=== PATIENT | female | born 1950 | race Caucasian/White ===

== ENCOUNTER 2020-12-20 01:31 | Emergency (ER) | payer MEDICARE, SELFPAY ==
[2020-12-20] VITALS (9 sets, daily range): BP systolic 112–161; BP diastolic 69–96; PULSE 74–97; RESP 14–95; TEMP 36.8; O2SAT 95–100
--- NOTE | ~2020-12-20 | CT_ITS ---
EXAMINATION: CT brain wo con DATE: 12/20/2020 04:38 INDICATION: Fall. Head injury. Dizziness. Nasal injury. TECHNIQUE: Computed tomography (CT) of the head was performed without intravenous contrast. The mA wa s adjusted according to patient size. Iterative reconstruction technique was employed. Exam dose: 68 1.00 mGy-cm total exam DLP. COMPARISON: None FINDINGS: Bilateral deep brain stimulator devices are again noted. Although 11 mm hypodensity in the right basal ganglia may be an enlarged Virchow-Lee space versus c hronic lacunar infarct. No intracranial mass lesion or hemorrhage, midline shift or mass effect effect. No subdural or epidur al hematoma. Status post left mastoidectomy. The left auditory ossicles are absent. Right mastoid air cells are un remarkable. Included paranasal sinuses are unremarkable. No skull fracture or bone destruction is evident. IMPRESSION: No acute intracranial finding or skull fracture Reviewed, dictated and finalized at [facility]. Reviewed, dictated and finalized at location [facility].
--- NOTE | ~2020-12-20 | CT_ITS ---
EXAMINATION: CT facial bones wo con DATE: 12/20/2020 04:38 INDICATION: Fall. Injury to nose. Dizziness. TECHNIQUE: Computed tomography (CT) of the facial bones and maxillofacial region was performed withou t intravenous contrast. Automated exposure control and iterative reconstruction technique were employ ed. Exam dose: 345.88 mGy-cm total exam DLP. COMPARISON: None. FINDINGS: No nasal bone fracture is identified. The frontozygomatic sutures and zygomatic arches and the remainder the facial bones are intact, without evidence of fracture. No mandibular fracture or di slocation is noted. IMPRESSION: No facial fracture Reviewed, dictated and finalized at [facility]. Reviewed, dictated and finalized at [facility]. IMPRESSION: No facial fracture
--- NOTE | ~2020-12-20 | XR_ITS ---
XR hand RT min 3V DATE: 12/20/2020 04:41 INDICATION: Fall. Posterior right hand pain, third and fourth metacarpophalangeal area pain TECHNIQUE: 3 views COMPARISON: 03/30/2016 right hand FINDINGS: Old third metacarpal shaft healed fracture deformity. Diffuse osteopenia. There is osteoarthritic change at the first carpometacarpal joint and multiple interphalangeal joints . No fracture or dislocation, periosteal reaction or bone destruction is evident. IMPRESSION: Polyarticular osteoarthritis Osteopenia Reviewed, dictated and finalized at location [facility].
--- NOTE | 2020-12-20 02:13 | ECG_ITS ---
Measurements Intervals [place] Rate: 76 P: MO: 0 QRS: 19 QRSD: 104 T: 3 QT: 375 QTc: 424 Interpretive Statements SINUS RHYTHM INCOMPLETE RIGHT BUNDLE BRANCH BLOCK BORDERLINE R WAVE PROGRESSION, ANTERIOR LEADS BORDERLINE ST-T WAVE ABNORMALITY- ANT/INF LEADS BASELINE ARTIFACT- I, II, III, AVR, AVL, AVF, V1-V3 BORDERLINE ECG Electronically Signed On 12-20-2020 5:53:55 CDT by Alonso Bonilla D.O.
[2020-12-20 02:49] LABS: Basophils Absolute Auto 0.1 K/mm3 (0.0-0.1); Basophils Percent Auto 0.8 % (0.2-1.2); Eosinophils Absolute Auto 0.2 K/mm3 (0-0.3); Eosinophils Percent Auto 3.8 % (0-4.4); Hematocrit 40.8 % (37.0-47.0); Immature Granulocyte Absolute 0.01 K/mm3 (0.00-0.031); Immature Granulocyte Percent A 0.2 % (0-0.5); Lymphocytes Absolute Auto 1.81 K/mm3 (0.9-3.2); Lymphocytes Percent Auto 29.7 % (18.3-44.2); Mean Corpuscular HGB Conc 31.9 g/dl (32-36); Mean Corpuscular Hemoglobin 29.8 pg (26-34); Mean Corpuscular Volume 93.6 fl (80-100); Mean Platelet Volume 9.4 fl (7.4-10.4); Monocytes Absolute Auto 0.7 K/mm3 (0.1-0.6); Monocytes Percent Auto 11.8 % (2.6-8.5); Neutrophils Absolute Auto 3.3 K/mm3 (1.3-6.7); Neutrophils Percent Auto 53.7 % (45.5-73.1); Platelet Count Result 161 k/mm3 (150-375); Red Blood Count 4.36 M/mm3 (4.2-5.4); Red Cell Distribution Width 13.3 % (11.5-14.5); White Blood Count 6.1 K/mm3 (4.5-10.0)
[2020-12-20 03:00] LABS: Alanine Aminotransferase 7 U/L (4-35); Albumin Level 4.1 g/dL (3.5-5.1); Alkaline Phosphatase 109 U/L (38-126); Anion Gap 6 mmol/L (8-16); Aspartate Amino Transferase 21 U/L (14-36); Bilirubin,Total 0.3 mg/dL (0.2-1.3); Blood Urea Nitrogen 29 mg/dL (7-17); Calcium 9.5 mg/dL (8.4-10.2); Carbon Dioxide 28 mmol/L (22-30); Chloride 103 mmol/L (98-107); Estimated CRCL calculation 48 ml/min; Estimated Glomerular Filt Rate > 60; Glucose 99 mg/dL (65-110); Magnesium 1.9 mg/dL (1.6-2.3); Partial Thromboplastin Time 29.6 SECONDS (22.3-36.8); Potassium 3.4 mmol/L (3.4-5.0); Sodium 137 mmol/L (137-145)
--- NOTE | 2020-12-20 03:00 | PC.NURSE ---
Pt. unable to void
--- NOTE | 2020-12-20 03:15 | PC.NURSE ---
pt. unable to void at this time.
--- NOTE | 2020-12-20 03:40 | PC.NURSE ---
pt. attempted for urine sample. unable to void.
--- NOTE | 2020-12-20 04:09 | ED.FALL ---
HPI - Fall General Chief Complaint: Dizziness Stated Complaint: ground level fall Time Seen by Provider: 12/20/20 01:50 Source: patient and RN notes reviewed Mode of arrival: EMS Limitations: no limitations History of Present Illness HPI Narrative: This is a 70 year old female with Parkinson's disease who presents from assisted living facility for evaluation after a fall. Patient states she walking to get something to drink when she lost her balance. She was walking with a walker , and she fell forward away from her walker . She hit her nose and chin, and she reports epistaxis. She denies LOC. She is complaining of headache currently. She denies dizziness, nausea, vomiting, rib pain or leg pain. She reports mild right hand pain. She is unsure if she takes blood thinner. Related Data Allergies Allergy/AdvReac Type Severity Reaction Status Date / Time baclofen Allergy Severe Anaphylactic Verified 12/20/20 02:07 Shock egg Allergy Mild Anaphylactic Verified 12/20/20 02:07 Shock Penicillins Allergy Unknown Rash Verified 12/20/20 02:07 propofol Allergy Unknown Anaphylactic Verified 12/20/20 02:07 Shock Review of Systems Review of Systems: All systems reviewed & are unremarkable except as noted in HPI and below PMFSH Past Medical History Medical History (Updated 12/20/20 @ 06:55 by Peyton Arguello MD) Hyperlipidemia Hypertension Parkinson disease Surgical History Surgical History (Updated 12/20/20 @ 04:14 by Peyton Arguello MD) History of cholecystectomy Social History Social History (Updated 12/20/20 @ 04:14 by Peyton Arguello MD) Smoking status: Never smoker Alcohol intake: never Substance use: never Exam Const: General: no acute distress and alert Orientation/consciousness: patient oriented x3 HENMT: Other: bruising to nose tip, no active epistaxis upper jaw endentulous bruising to chin Eyes: Pupils: Equal, round and reactive pupils present EOM: EOMs intact bilaterally Neck: Neck: normal visual inspection Other: no c spine tenderness Chest: Chest palpation & inspection: normal inspection of the chest Resp: Effort & Inspection: normal respiratory effort and no retractions Auscultation: clear to auscultation bilaterally Cardio: Rate: regular rate Rhythm: regular rhythm Heart sounds: no murmurs GI: GI Palp: Yes Soft to palpation, Yes Tenderness to palpation present (GI) and Yes Guarding due to palpation present (GI) Auscultation: bowels sounds not normal Neuro: General: patient oriented x3, moves all extremities and CN's II-XI intact bilaterally Psych: Mental Status: mental status grossly normal Affect: normal affect Course Reevaluation(s) Reevaluation #1: PAtient's labs are unremarkable other than possible dehydation with elevated BUN. She was given IVF hydration. No sign orthostasis. She is not having dizziness. imaging unremarkable. Date: 12/20/20 Time: 06:53 Vital Signs Vital signs: Vital Signs Temperature 98.2 F 12/20/20 01:37 Pulse Rate 74 12/20/20 01:37 Respiratory Rate 20 12/20/20 01:37 Pulse Oximetry 97 12/20/20 01:37 Temperature 98.2 F 12/20/20 01:37 Pulse Rate 97 12/20/20 06:53 Respiratory Rate 19 12/20/20 06:53 Blood Pressure 112/69 12/20/20 06:53 Pulse Oximetry 100 12/20/20 06:53 MDM - Fall Medical Records Attestation: I reviewed the patient's medical records. Lab Data Attestation: I reviewed the patient's lab results. Result diagrams: 12/20/20 02:34 12/20/20 02:34 Labs: Lab Results 12/20/20 12/20/20 12/20/20 Range/Units 02:34 02:34 02:34 WBC 6.1 (4.5-10.0) K/mm3 RBC 4.36 (4.2-5.4) M/mm3 Hgb 13.0 (12.0-15.0) g/dL Hct 40.8 (37.0-47.0) % MCV 93.6 (80-100) fl MCH 29.8 (26-34) pg MCHC 31.9 L (32-36) g/dl RDW 13.3 (11.5-14.5) % Plt Count 161 (150-375) k/mm3 MPV 9.4 (7.4-10.4) fl Immature Gran % (Auto) 0.2
[2020-12-20] MEDS: SODIUM CHLORIDE 0.9% IV 1,000 ML 999 ML IV CONT (04:15)
[2020-12-20 04:33] LABS: Add Urine Microscopic? YES; Appearance Urine Clear (Clear); Bilirubin Urine Negative (Negative); Blood Urine Negative (Negative); Color Urine Yellow (Yellow); Glucose Urine UA Negative (Negative); Ketones Urine Trace mg/dL (Negative); Leukocyte Esterase Ur Negative LEU/UL (Negative); Mucus Urine Rare /lpf; Nitrate Urine Negative (Negative); Protein Urine Negative (Negative); Squamous Epithelial Cell Urine Rare /hpf (Few); Urobilinogen Urine Negative mg/dL (<2.0); WBC Urine 0-3 /hpf
[2020-12-20 04:38] LABS: Specific Grav Ur 1.031 (1.001-1.035)
--- NOTE | 2020-12-20 07:08 | PC.NURSE ---
Called pt. daughter Rosa states she is in the [facility] and cannot get pt. RN contacted pt. daughter [phone] Christy. States she is working in an ED in [place], [place] and will call a grandchild to come and get the pt.
--- NOTE | 2020-12-20 07:30 | PC.NURSE ---
attempted to call [facility] [employer] twice. left voicemail x 1.
--- NOTE | 2020-12-20 09:14 | PC.NURSE ---
davey from [facility] calls for phone report
== END 2020-12-20 07:50 ==
PROVIDERS: Emergency Provider General Practice; PCP Internal Medicine
DX: S00.33XA Contusion of nose, initial encounter (principal); S00.83XA Contusion of other part of head, initial encounter; E86.0 Dehydration; E78.5 Hyperlipidemia, unspecified; I10 Essential (primary) hypertension; G20 Parkinson's disease; W18.39XA Other fall on same level, initial encounter; I45.10 Unspecified right bundle-branch block; R94.31 Abnormal electrocardiogram [ECG] [EKG]
CPT/HCPCS: 36415; 51701; 70450; 70486; 73130; 80053; 81001; 83735; 85025; 85610; 85730; 93005; 96360; 99284; J7030

== ENCOUNTER 2022-02-06 08:09 | Emergency (ER) | payer MEDICARE, SELFPAY ==
--- NOTE | ~2022-02-06 | CT_ITS ---
EXAMINATION: CT abdomen pelvis w con DATE: 02/06/2022 09:33 INDICATION: Bilateral flank pain TECHNIQUE: Computed tomography (CT) of the abdomen and pelvis was performed with 100 cc Omnipaque 350 intravenous contrast. The dose-length product was 1287.59 mGy-cm. Automated exposure control and ite rative reconstruction technique were employed. COMPARISON: CT dated 02/21/2018 FINDINGS: Lung bases are unremarkable. Heart size normal. There is mild dilation of the renal pelvis bilaterally, although the ureters appear normal in course and caliber. There is a subcentimeter hypod ensity exophytic from the right kidney laterally, too small to characterize. A similar appearing hypo dense lesion of the left kidney, also too small to characterize. Status post cholecystectomy with expected prominence of the bile ducts. The liver, spleen, pancreas, adrenal glands are unremarkable. Colonic diverticulosis without evidence for diverticulitis. Nonobstr uctive bowel pattern. Normal appendix. No free air or free fluid. Uterus is retroverted with possible fibroid changes. Small fat-containing left inguinal hernia. There is a chronic fracture deformity of the right iliac crest. There is grade 1 spondylolisthesis at L5-S1 secondary to spondylolysis. Moder ate lumbar spondylosis. IMPRESSION: 1. Mildly dilated renal pelvis bilaterally without dilation of the ureters. Cannot exclude UPJ obstru ction. 2: Retroverted uterus with possible fibroid changes. Reviewed, dictated and finalized at location [facility]. IMPRESSION: 1. Mildly dilated renal pelvis bilaterally without dilation of the ureters. Can not exclude UPJ obstruction. 2: Retroverted uterus with possible fibroid changes.
[2022-02-06 08:09] VITALS: BP 156/79; PULSE 96; RESP 15; TEMP 36.4; O2SAT 95
[2022-02-06 08:35] LABS: Basophils Absolute Auto 0.1 K/mm3 (0.0-0.1); Eosinophils Absolute Auto 0.3 K/mm3 (0-0.3); Eosinophils Percent Auto 4.8 % (0-4.4); Hematocrit 41.1 % (37.0-47.0); Hemoglobin 13.4 g/dL (12.0-15.0); Immature Granulocyte Absolute 0.03 K/mm3 (0.00-0.031); Immature Granulocyte Percent A 0.6 % (0-0.5); Lymphocytes Absolute Auto 1.69 K/mm3 (0.9-3.2); Lymphocytes Percent Auto 32.3 % (18.3-44.2); Mean Corpuscular HGB Conc 32.6 g/dl (32-36); Mean Corpuscular Hemoglobin 30.3 pg (26-34); Mean Platelet Volume 9.2 fl (7.4-10.4); Monocytes Absolute Auto 0.5 K/mm3 (0.1-0.6); Monocytes Percent Auto 10.1 % (2.6-8.5); Neutrophils Absolute Auto 2.7 K/mm3 (1.3-6.7); Neutrophils Percent Auto 51.2 % (45.5-73.1); Platelet Count Result 169 k/mm3 (150-375); Red Blood Count 4.42 M/mm3 (4.2-5.4); Red Cell Distribution Width 13.8 % (11.5-14.5); White Blood Count 5.2 K/mm3 (4.5-10.0)
[2022-02-06 08:49] LABS: Bacteria Urine 3+ /hpf; Mucus Urine Few /lpf; Squamous Epithelial Cell Urine Few /hpf (Few); WBC Urine 0-3 /hpf
[2022-02-06 08:52] LABS: Add Urine Microscopic? YES; Appearance Urine Cloudy (Clear); Bilirubin Urine Negative (Negative); Blood Urine Trace-intact (Negative); Color Urine Yellow (Yellow); Glucose Urine UA Negative (Negative); Ketones Urine Trace mg/dL (Negative); Leukocyte Esterase Ur Negative LEU/UL (Negative); Nitrate Urine Positive (Negative); Protein Urine Negative (Negative); Specific Grav Ur 1.025 (1.001-1.035); Urobilinogen Urine 0.2 mg/dL (<2.0)
[2022-02-06 09:05] LABS: Alanine Aminotransferase 8 U/L (6-35); Alkaline Phosphatase 102 U/L (38-126); Anion Gap 8 mmol/L (8-16); Aspartate Amino Transferase 25 U/L (14-36); Bilirubin,Total 0.5 mg/dL (0.2-1.3); Blood Urea Nitrogen 21 mg/dL (7-17); Carbon Dioxide 26 mmol/L (22-30); Chloride 104 mmol/L (98-107); Estimated CRCL calculation 71 ml/min; Estimated Glomerular Filt Rate > 60; Glucose 92 mg/dL (65-110); Potassium 3.9 mmol/L (3.4-5.0); Sodium 138 mmol/L (137-145)
[2022-02-06 09:40] VITALS: BP 126/61; PULSE 85; RESP 15; O2SAT 97
[2022-02-06 10:42] VITALS: BP 129/89; PULSE 73; RESP 15; O2SAT 98
--- NOTE | 2022-02-06 10:46 | PC.NURSE ---
Called Rosa Elizondo (daughter) per pt request and gave update on pt status. CELL [phone] for updates
--- NOTE | 2022-02-06 10:47 | ED.BACK ---
HPI - Back Pain/Injury General Chief Complaint: Back Pain/Injury Stated Complaint: back pain Source: RN notes reviewed History of Present Illness HPI Narrative: [facility] for [facility] pain. Patient states she is had bilateral flanks and lower back for the past 2 days she states she is had no trauma or injury the pain does not radiate states she does have a history of Parkinson disease as well as frequent urinary tract infections. She states she has not take anything for the pain today she denies any fevers or chills chest pain shortness of breath abdominal pain nausea vomiting or any other symptoms Related Data Allergies Allergy/AdvReac Type Severity Reaction Status Date / Time baclofen Allergy Severe Anaphylactic Verified 02/06/22 08:16 Shock egg Allergy Mild Anaphylactic Verified 02/06/22 08:16 Shock Penicillins Allergy Unknown Rash Verified 02/06/22 08:16 propofol Allergy Unknown Anaphylactic Verified 02/06/22 08:16 Shock Review of Systems Review of Systems: Gen.: Denies fevers or chills ENT: Denies congestion Respiratory: Denies shortness of breath or cough CV: Denies chest pain or palpitations GI: Denies abdominal pain nausea, emesis or diarrhea reports flank pain reports frequent UTI Musculoskeletal: Denies back pain or muscle pain Neuro: Reports Parkinson's disease Skin: Denies rash Except as documented, all other systems reviewed and negative PMFSH Past Medical History Medical History Hyperlipidemia Hypertension Parkinson disease Surgical History Surgical History (Updated 12/20/20 @ 04:14 by Peyton Arguello MD) History of cholecystectomy Social History Social History Smoking status: Never smoker Alcohol intake: never Substance use: never Exam Narrative: APPEARANCE: No acute distress, nontoxic, resting in bed EYES: EOMI HEENT: Normocephalic, atraumatic, OMM RESPIRATORY: No respiratory distress Clear to auscultation bilaterally with no rhonchi wheezing or rales. CARDIOVASCULAR: Regular rate and rhythm without murmurs rubs or gallops. ABDOMINAL: Soft, nondistended mild tenderness in right lower quadrant left lower quadrant no tenderness right upper quadrant left upper quadrant no rebound or guarding mild flank tenderness bilaterally Back: No midline thoracic lumbar tenderness palpation MUSCULOSKELETAl: Moves all extremities. No clubbing, cyanosis or edema. NEURO: Awake and alert x 4. Following commands, mild slurred speech, no focal deficits SKIN:: Warm, dry. No rashes lesions or abrasions PSYCHIATRIC: Normal affect/mood, Course Course Emergency Course: Patient states he is feeling much better at this time states pain has resolved Discussed with GROCERY CLERK Мария for Dr. Chandra we discussed the patient's CT scan she discussed Dr. Chandra and this time feel patient will be treated for UTI with follow-up as an outpatient in the office Discussed with patient results of workup and diagnosis. Discussed need for follow-up with primary care, proper use of medication, and reasons to return to the emergency department. Patient understands and agrees to current treatment plan cussed with patient concern of possible UPJ obstruction need for follow-up in agreement Vital Signs Vital signs: Vital Signs Temperature 97.5 F L 02/06/22 08:09 Pulse Rate 96 02/06/22 08:09 Respiratory Rate 15 02/06/22 08:09 Blood Pressure 156/79 H 02/06/22 08:09 Pulse Oximetry 95 02/06/22 08:09 Oxygen Delivery Room Air 02/06/22 08:09 Temperature 97.5 F L 02/06/22 08:09 Pulse Rate 73 02/06/22 10:42 Respiratory Rate 15 02/06/22 10:42 Blood Pressure 129/89 02/06/22 10:42 Pulse Oximetry 98 02/06/22 10:42 Oxygen Delivery Room Air 02/06/22 08:09 MDM - Back Pain/Injury Lab Data Result diagrams: 02/06/22 08:27
--- NOTE | 2022-02-06 10:51 | PC.NURSE ---
Spoke to Mesha MORRELL at [facility] and gave nurse to nurse verbal report on pt status and test results/treatments.
== END 2022-02-06 12:26 ==
PROVIDERS: Emergency Provider Emergency Medicine; PCP Internal Medicine
DX: N39.0 Urinary tract infection, site not specified (principal); E78.5 Hyperlipidemia, unspecified; I10 Essential (primary) hypertension; G20 Parkinson's disease
CPT/HCPCS: 36415; 51701; 74177; 80053; 81001; 85025; 96365; 96367; 99284; J0131; J1956; Q9967

== ENCOUNTER 2022-02-21 13:41 | Outpatient (CLI) | payer MEDICARE, SELFPAY ==
--- NOTE | ~2022-02-21 | NM_ITS ---
EXAMINATION: YEIMY sepulveda renal scan DATE: 02/21/2022 15:07 INDICATION: Dilated renal pelvises TECHNIQUE: 7.6 mCi Tc-99m MAG3 was administered IV. 40 mg furosemide was administered IV immediately afterward. The patient was scanned in the supine position. A posterior abdominal radionuclide angiog saida was obtained. A subsequent time course of static images of the kidneys, ureters, and bladder was obtained. COMPARISON: None FINDINGS: The posterior abdominal radionuclide angiogram and sequential static images show normal size, positio n, and morphology of the kidneys. Peak renal parenchymal uptake was 3.4 min in left kidney and 3.4 mi n in right kidney (normal peak 3-5 minutes). The relative early renal uptake was 47% on the left and 53% on the right (<40% is abnormal). No abnormalities of the ureters or bladder are seen. T1/2 for clearance of activity from the left kidney and proximal collecting system was 9 minutes. T1/2 for clearance of activity from the right kidney and proximal collecting system was 11 minutes. Notes on interpretation: T1/2 <10 minutes is normal, 10-15 minutes is low grade obstruction of questi onable clinical significance, 15-20 minutes is partial obstruction that is likely clinically signific ant, >20 minutes is high grade obstruction. Note that false positives may be seen with supine positio noah, dehydration, severely dilated nonobstructed kidney, atonic collecting system, poor renal functi on, and chronic furosemide use. IMPRESSION: 1. Symmetric kidney function. 2. Minimal delayed activity clearance from the right kidney consistent with low-grade obstruction of questionable clinical significance. No delay in activity clearance from the left kidney to suggest f ixed obstruction. Reviewed, dictated and finalized at location B. IMPRESSION: 1. Symmetric kidney function. 2. Minimal delayed activity clearance from the right kidney consistent with lo w-grade obstruction of questionable clinical significance. No delay in activity clearance from the left kidney to suggest fixed obstruction.
== END 2022-02-21 13:42 | disposition home or self-care (01) ==
PROVIDERS: PCP Internal Medicine; Visit Provider Nurse Practitioner Family
DX: N28.89 Other specified disorders of kidney and ureter (principal)
CPT/HCPCS: 78708; A9562; J1940

== ENCOUNTER 2023-06-19 17:13 | Emergency (ER) | payer MEDICARE, SELFPAY ==
--- NOTE | ~2023-06-19 | CT_ITS ---
EXAMINATION: CT cervical spine wo con DATE: 06/19/2023 20:10 INDICATION: Head injury. TECHNIQUE: Computed tomography (CT) of the cervical spine was performed without intravenous contrast. Automated exposure control and iterative reconstruction technique were employed. The dose-length pro duct was 472.03 mGy-cm. COMPARISON: None FINDINGS: There is 16 degrees dextroscoliosis of cervicothoracic spine. There is hypolordosis of cerv ical spine. There is mild chronic anterior wedging of T3 and T5 vertebral bodies. There is mildly dec reased disc height at C3-C4 and C4-C5 and severely decreased disc height at C5-C6 and C6-C7. The foll owing disc levels are specifically discussed: C2-C3: There is mild bilateral uncovertebral joint osteoarthritis. There is moderate right and severe left facet joint osteoarthritis. There is mild left neural foraminal stenosis. There is no central c anal stenosis. C3-C4: There is severe bilateral uncovertebral joint osteoarthritis. There is severe bilateral facet joint osteoarthritis. There is mild bilateral neural foraminal stenosis. There is mild central canal stenosis. C4-C5: There is mild right and severe left uncovertebral joint osteoarthritis. There is severe bilate ral facet joint osteoarthritis. There is mild bilateral neural foraminal stenosis. There is mild cent ral canal stenosis. C5-C6: There is severe bilateral uncovertebral joint osteoarthritis. There is moderate right and livia re left facet joint osteoarthritis. There is mild bilateral neural foraminal stenosis. There is mild central canal stenosis. C6-C7: There is severe bilateral uncovertebral joint osteoarthritis. There is mild right and severe l eft facet joint osteoarthritis. There is mild right and moderate left neural foraminal stenosis. Ther e is mild central canal stenosis. C7-T1: There is no uncovertebral joint osteoarthritis. There is severe bilateral facet joint osteoart hritis. There is mild bilateral neural foraminal stenosis. There is no central canal stenosis. IMPRESSION: 1. No fracture. 2. Severe cervical spondylosis. 3. Cervicothoracic dextroscoliosis. Reviewed, dictated and finalized at location E. ER THIRD
--- NOTE | ~2023-06-19 | XR_ITS ---
EXAMINATION: XR chest 1V DATE: 06/19/2023 20:47 INDICATION: Fall. TECHNIQUE: A single frontal view of the chest was obtained. COMPARISON: Chest 2 views 02/17/2017, CT abdomen and pelvis 03/08/2022 FINDINGS: The patient is rotated to her left. There is no pneumonia, pleural effusion, or pneumothora x. The heart size is normal. There are old healed left rib fractures. Electronic devices overlie the chest bilaterally. IMPRESSION: 1. No acute cardiopulmonary disease. Reviewed, dictated and finalized at location E. OARRAY SPECIALIST
--- NOTE | ~2023-06-19 | XR_ITS ---
EXAMINATION: XR shoulder RT min 2V DATE: 06/19/2023 20:47 INDICATION: Right shoulder pain. Fall. TECHNIQUE: 3 views of right shoulder were obtained. COMPARISON: None. FINDINGS: Bone alignment is normal. No fracture. There is severe acromioclavicular joint osteoarthrit is. The glenohumeral joint is not well profiled. There is at least mild glenohumeral joint osteoarthr itis. IMPRESSION: 1. Polyarticular osteoarthritis. Reviewed, dictated and finalized at location E. NICAL APPLICATIONS SCIENTIST
--- NOTE | ~2023-06-19 | XR_ITS ---
EXAMINATION: XR knee LT 3V DATE: 06/19/2023 20:47 INDICATION: Left knee pain. Fall. TECHNIQUE: 3 views of left knee were obtained. COMPARISON: Left knee radiographs 07/20/2009 FINDINGS: Bone alignment is normal. No fracture. There is severe osteoarthritis of patellofemoral com partment and mild osteoarthritis of medial and lateral compartments. No knee joint effusion. IMPRESSION: 1. Severe left knee osteoarthritis. Reviewed, dictated and finalized at location E. ECTOR SUBASSEMBLIES
--- NOTE | ~2023-06-19 | CT_ITS ---
EXAMINATION: CT brain wo con DATE: 06/19/2023 20:10 INDICATION: Head injury. TECHNIQUE: Computed tomography (CT) of the head was performed without intravenous contrast. The mA wa s adjusted according to patient size. Iterative reconstruction technique was employed. The dose-lengt h product was 605.33 mGy-cm. COMPARISON: Head CT 12/20/2020 FINDINGS: There are bilateral deep brain stimulators. There is a prominent perivascular space in the right basal ganglia. There are scattered areas of low attenuation in the cerebral white matter. There is no intracranial hemorrhage, acute infarction, or abnormal intracranial mass lesion. The ventricle s are normal in size. There is mild mucosal thickening in the paranasal sinuses. The orbits are catalina l. There is a left mastoidectomy. There is left frontal lateral scalp soft tissue swelling. IMPRESSION: 1. Mild nonspecific cerebral white matter disease, which likely represents chronic small vessel ische adela disease, worsened from 12/20/2020. Reviewed, dictated and finalized at location E. NT REP IMPRESSION: 1. 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
[2023-06-19 17:30] VITALS: BP 136/76; PULSE 87; RESP 16; TEMP 36.7; O2SAT 96
--- NOTE | 2023-06-19 19:27 | ED.GENADULT ---
HPI - General Adult General Chief complaint: Fall Stated complaint: FALL FROM ASSISTED LIVING ,HIT HEAD Time Seen by Provider: 06/19/23 19:05 History of Present Illness HPI narrative: Is a 2-year-old female who presents emergency department with chief complaint of fall. Patient reports he has prior history of stroke with left-sided deficits patient reports that she tripped over her feet while walking in her independent living facility patient reports that she does fall quite frequently and/or movable and talking rollover she falls but today was not able to follow her normal way patient reports she struck her forehead reports she has pain in her right shoulder and abrasion on her left knee. Patient also states that she is concerned that she may have a UTI and would like a urinalysis checked. Related Data Allergies Allergy/AdvReac Type Severity Reaction Status Date / Time baclofen Allergy Severe Anaphylactic Verified 02/06/22 08:16 Shock egg Allergy Mild Anaphylactic Verified 02/06/22 08:16 Shock Penicillins Allergy Unknown Rash Verified 02/06/22 08:16 propofol Allergy Unknown Anaphylactic Verified 02/06/22 08:16 Shock Review of Systems Review of Systems: A 10 system review of systems was completed on the patient and is negative except for what is stated in the HPI. Nursing and ancillary documentation was reviewed. [facility] Past Medical History Medical History Hyperlipidemia Hypertension Parkinson disease Surgical History Surgical History History of cholecystectomy Social History Social History Smoking status: Never smoker Alcohol intake: never Substance use: never Exam Narrative: GENERAL: Well-appearing, well-nourished, and in no acute distress. HEAD: Normocephalic, small contusion to the left forehead. EYES: PERRLA and EOMI. ENT: Nares clear, no rhinorrhea or epistaxis. Mucous membranes moist. NECK: Supple. CHEST: Clear to auscultation. No respiratory distress. HEART: Regular rate and rhythm. No murmur heard. Normal peripheral pulses. ABDOMEN: Soft, nontender, nondistended, normal active bowel sounds. EXTREMITIES: Normal range of motion. No edema. Tenderness to palpation of the right shoulder, abrasion and tenderness left knee SKIN: Warm, dry, no rash. NEURO: No new focal deficits chronic left-sided weakness. Alert and oriented x3. PSYCH: Normal mood and affect. Course Vital Signs Vital signs: Vital Signs Temperature 36.7 C 06/19/23 17:30 Pulse Rate 87 06/19/23 17:30 Respiratory Rate 16 06/19/23 17:30 Blood Pressure 136/76 06/19/23 17:30 Pulse Oximetry 96 06/19/23 17:30 Oxygen Delivery Room Air 06/19/23 17:30 Temperature 36.7 C 06/19/23 17:30 Pulse Rate 87 06/19/23 17:30 Respiratory Rate 16 06/19/23 17:30 Blood Pressure 136/76 06/19/23 17:30 Pulse Oximetry 96 06/19/23 17:30 Oxygen Delivery Room Air 06/19/23 17:30 Medical Decision Making MDM Narrative Medical decision making narrative: Differential diagnosis includes intracranial hemorrhage, head injury, cervical spine fracture, fracture, UTI, electrolyte abnormality CT head CT C-spine showed no acute abnormality Plain film x-rays of the chest right shoulder and left knee showed no evidence of fracture no evidence of pneumonia Laboratory studies were obtained which were within normal limits Urinalysis showed no evidence UTI Patient will be discharged back to her facility where she is resident of Vital Signs Vital Signs: Vital Signs Temperature 36.7 C 06/19/23 17:30 Pulse Rate 87 06/19/23 17:30 Respiratory Rate 16 06/19/23 17:30 Blood Pressure 136/76 06/19/23 17:30 Pulse Oximetry 96 06/19/23 17:30 Oxygen Delivery Room Air 06/19/23 17:30 Temperature
[2023-06-19 20:24] LABS: Basophils Absolute Auto 0.1 K/mm3 (0.0-0.1); Basophils Percent Auto 0.8 % (0.2-1.2); Eosinophils Absolute Auto 0.2 K/mm3 (0-0.3); Eosinophils Percent Auto 3.5 % (0-4.4); Hematocrit 41.4 % (37.0-47.0); Hemoglobin 13.4 g/dL (12.0-15.0); Immature Granulocyte Absolute 0.02 K/mm3 (0.00-0.031); Immature Granulocyte Percent A 0.3 % (0-0.5); Lymphocytes Absolute Auto 2.27 K/mm3 (0.9-3.2); Lymphocytes Percent Auto 34.1 % (18.3-44.2); Mean Corpuscular HGB Conc 32.4 g/dl (32-36); Mean Corpuscular Hemoglobin 30.2 pg (26-34); Mean Corpuscular Volume 93.5 fl (80-100); Mean Platelet Volume 9.4 fl (7.4-10.4); Monocytes Absolute Auto 0.5 K/mm3 (0.1-0.6); Monocytes Percent Auto 7.5 % (2.6-8.5); Neutrophils Absolute Auto 3.6 K/mm3 (1.3-6.7); Neutrophils Percent Auto 53.8 % (45.5-73.1); Platelet Count Result 177 k/mm3 (150-375); Red Blood Count 4.43 M/mm3 (4.2-5.4); Red Cell Distribution Width 13.7 % (11.5-14.5); White Blood Count 6.7 K/mm3 (4.5-10.0)
[2023-06-19 20:26] LABS: Appearance Urine Clear (Clear); Bilirubin Urine Negative (Negative); Blood Urine Negative (Negative); Color Urine Yellow (Yellow); Glucose Urine UA Negative (Negative); Ketones Urine Negative (Negative); Leukocyte Esterase Ur Negative LEU/UL (Negative); Nitrate Urine Negative (Negative); Protein Urine Negative (Negative); Specific Grav Ur 1.015 (1.001-1.035); Urobilinogen Urine 0.2 mg/dL (<2.0)
[2023-06-19 20:27] LABS: Add Urine Microscopic? NO
[2023-06-19 20:33] LABS: Alanine Aminotransferase 8 U/L (6-35); Albumin Level 4.4 g/dL (3.5-5.1); Alkaline Phosphatase 91 U/L (38-126); Anion Gap 5 mmol/L (8-16); Aspartate Amino Transferase 28 U/L (14-36); Bilirubin,Total 0.6 mg/dL (0.2-1.3); Blood Urea Nitrogen 19 mg/dL (7-17); Calcium 9.6 mg/dL (8.4-10.2); Carbon Dioxide 28 mmol/L (22-30); Chloride 105 mmol/L (98-107); Estimated CRCL calculation 59 ml/min; Estimated Glomerular Filt Rate > 60; Glucose 101 mg/dL (65-110); Potassium 3.8 mmol/L (3.4-5.0); Sodium 138 mmol/L (137-145)
[2023-06-19 21:34] VITALS: BP 132/74; PULSE 82; RESP 18; O2SAT 97
== END 2023-06-19 21:34 | disposition home or self-care (01) ==
PROVIDERS: Emergency Provider Emergency Medicine; PCP Internal Medicine
DX: S00.83XA Contusion of other part of head, initial encounter (principal); S40.011A Contusion of right shoulder, initial encounter; S90.02XA Contusion of left ankle, initial encounter; S80.212A Abrasion, left knee, initial encounter; E78.5 Hyperlipidemia, unspecified; I10 Essential (primary) hypertension; I69.954 Hemiplegia and hemiparesis following unspecified cerebrovascular disease affecting left non-dominant side; G20.A1 Parkinson's disease without dyskinesia, without mention of fluctuations; Z90.49 Acquired absence of other specified parts of digestive tract; M17.12 Unilateral primary osteoarthritis, left knee; M19.011 Primary osteoarthritis, right shoulder; M47.812 Spondylosis without myelopathy or radiculopathy, cervical region; R90.82 White matter disease, unspecified; W01.0XXA Fall on same level from slipping, tripping and stumbling without subsequent striking against object, initial encounter
CPT/HCPCS: 36415; 70450; 71045; 72125; 73030; 73562; 80053; 81003; 85025; 99284

== ENCOUNTER 2024-05-15 18:59 | Emergency (ER) | payer MEDICARE, SELFPAY ==
--- NOTE | ~2024-05-15 | CT_ITS ---
CT brain wo con Ordering provider: Chema Burns MD History: 73 years Female with . CHI . Comparison: June 19, 2023 Technique: CT of the head without contrast. Radiation reduction technique utilized.The dose-length product was 681 mGy-cm. FINDINGS: BRAIN PARENCHYMA AND CSF SPACES: Bilateral frontal stimulator with the tip in the area of the thalam i and brainstem. No midline shift, mass effect or hemorrhage. The brain parenchyma and CSF spaces ar e otherwise normal. VISUALIZED PARANASAL SINUSES: Well aerated. MASTOIDS: Well aerated. BONES: The bones appear intact. SOFT TISSUES: Visualized nasopharynx is normal. Superficial soft tissues are normal. IMPRESSION: No acute intracranial findings. Reviewed, dictated and finalized at location A. R COIL TAPER
[2024-05-15 19:00] VITALS: BP 134/72; PULSE 101; RESP 18; O2SAT 98
--- NOTE | 2024-05-15 19:47 | ED_ITS ---
HPI - Fall General Chief Complaint: Fall <Chema Burns MD - Last Filed: 05/15/24 20:40> Stated Complaint: HEAD LAC S/P GLF <Chema Burns MD - Last Filed: 05/15/24 20:40> Time Seen by Provider: 05/15/24 19:03 <Chema Burns MD - Last Filed: 05/15/24 20:40> History of Present Illness HPI Narrative: 73-year-old female with a past medical history including hypertension and Parkinson's disease/dementia. Patient presents from her correction facility for concerns of a ground level fall. Unclear how patient fell, but she does have significant tremor and movement from her Parkinson's. Not any blood thinner medications. Reportedly hit her head on the door on the way down. Did not lose consciousness. Patient is complaining of some head pain but has no injuries appreciated or any lacerations. Denies any chest pain or shortness of breath, no prodromal symptoms reported before the fall. Patient was otherwise in her normal state of health. <Chema Burns MD - Last Filed: 05/15/24 20:40> Related Data Allergies/Adverse Reactions: Allergies Allergy/AdvReac Type Severity Reaction Status Date / Time baclofen Allergy Severe Anaphylactic Verified 02/06/22 08:16 Shock egg Allergy Mild Anaphylactic Verified 02/06/22 08:16 Shock Penicillins Allergy Unknown Rash Verified 02/06/22 08:16 propofol Allergy Unknown Anaphylactic Verified 02/06/22 08:16 Shock <Chema Burns MD - Last Filed: 05/15/24 20:40> Review of Systems Review of Systems: As reviewed above in HPI <Chema Burns MD - Last Filed: 05/15/24 20:40> [facility] Past Medical History Medical History: Medical History Hypertension Hyperlipidemia Parkinson disease <Chema Burns MD - Last Filed: 05/15/24 20:40> Surgical History Surgical History: Surgical History History of cholecystectomy <Chema Burns MD - Last Filed: 05/15/24 20:40> Social History Social History: Social History Smoking status: Never smoker Alcohol intake: never Substance use: never <Chema Burns MD - Last Filed: 05/15/24 20:40> Exam Narrative: GENERAL: [Well-appearing, well-nourished, and in no acute distress.] HEAD: [Normocephalic, atraumatic.] Area of alopecia on the top of the skull without any laceration or acute injury EYES: [PERRLA and EOMI.] ENT: Nares clear, no rhinorrhea or epistaxis. Mucous membranes moist. NECK: Supple. CHEST: [Clear to auscultation. No respiratory distress.] HEART: [Regular rate and rhythm]. No murmur heard. [Normal peripheral pulses.] ABDOMEN: [Soft, nondistended], [nontender], [No rigidity or guarding] EXTREMITIES: Normal range of motion. [No edema.] SKIN: Warm, dry, no rash. NEURO: No new obvious focal deficits and she is able to move all extremities. Alert and oriented [x3.] PSYCH: [Normal mood and affect.] <Chema Burns MD - Last Filed: 05/15/24 20:40> Course Vital Signs Vital signs: Vital Signs Pulse Rate 101 H 05/15/24 19:00 Respiratory Rate 18 05/15/24 19:00 Blood Pressure 134/72 05/15/24 19:00 Pulse Oximetry 98 05/15/24 19:00 Oxygen Delivery Room Air 05/15/24 19:00 Pulse Rate 101 H 05/15/24 19:00 Respiratory Rate 18 05/15/24 19:00 Blood Pressure 134/72 05/15/24 19:00 Pulse Oximetry 98 05/15/24 19:00 Oxygen Delivery Room Air 05/15/24 19:00 <Chema Burns MD - Last Filed: 05/15/24 20:40> Vital Signs Pulse Rate 101 H 05/15/24 19:00 Respiratory Rate 18 05/15/24 19:00 Blood Pressure 134/72 05/15/24 19:00 Pulse Oximetry 98 05/15/24 19:00 Oxygen Delivery Room Air 05/15/24 19:00 Pulse Rate 101 H 05/15/24 19:00 Respiratory Rate 18 05/15/24 19:00 Blood Pressure 134/72 05/15/24 19:00 Pulse Oximetry 98 05/15/24 19:00 Oxygen Delivery Room Air 05/15/24 19:00 <Rishi Unger MD - Last Filed: 05/15/24 23:49> MDM - Fall MDM Narrative Medical decision making narrative: 73-year-old female with history of hypertension and Parkinson's who presents to the emergency department after a ground level fall. She hit her head on the door on the way down but did not lose consciousness. Not any blood thinner medications. Complaining of pain in her head. No obvious traumatic injury externally, no hematoma or laceration. She has an area of old alopecia on top of her skull but not from today's injury. She has normal reassuring vital signs without any significant blood pressure concerns, tachycardia, hypoxia. No tachypnea. Given her age and risk factors a CT head was obtained without contrast to assess for any intracranial pathology prior to safe discharge back to her facility. Given patient's significant movement disorder she did require IM Benadryl for the CT scan. Patient signed out to the oncoming provider pending CT scan and discharged back to her facility if negative. <Chema Burns MD - Last Filed: 05/15/24 20:40> 73-year-old female with history of hypertension and Parkinson's who presents to the emergency department after a ground level fall. She hit her head on the door on the way down but did not lose consciousness. Not any blood thinner medications. Complaining of pain in her head. No obvious traumatic injury externally, no hematoma or laceration. She has an area of old alopecia on top of her skull but not from today's injury. She has normal reassuring vital signs without any significant blood pressure concerns, tachycardia, hypoxia. No tachypnea. Given her age and risk factors a CT head was obtained without contrast to assess for any intracranial pathology prior to safe discharge back to her facility. Given patient's significant movement disorder she did require IM Benadryl for the CT scan. Patient signed out to the oncoming provider pending CT scan and discharged back to her facility if negative. CT head showed no acute abnormality <Rishi Unger MD - Last Filed: 05/15/24 23:49> Medical Records Attestation: I reviewed the patient's medical records. <Chema Burns MD - Last Filed: 05/15/24 20:40> Discharge Plan Discharge Clinical Impression: CHI (closed head injury), Parkinson's disease <Chema Burns MD - Last Filed: 05/15/24 20:40> Patient Disposition: Still a Patient <Chema Burns MD - Last Filed: 05/15/24 20:40> Condition: Stable <Chema Burns MD - Last Filed: 05/15/24 20:40> Patient Language: Romansh <Chema Burns MD - Last Filed: 05/15/24 20:40> Prescriptions: No Action levofloxacin 750 mg tablet 750 mg PO DAILY 7 Days Qty: 7 0RF <Chema Burns MD - Last Filed: 05/15/24 20:40> Follow-up/Referrals: Karmen,Steve Rhodes MD [Primary Care Provider] - <Chema Burns MD - Last Filed: 05/15/24 20:40> Time of Disposition: 23:49 <Chema Burns MD - Last Filed: 05/15/24 20:40> 23:49 <Rishi Unger MD - Last Filed: 05/15/24 23:49>
[2024-05-15] MEDS: diphenhydrAMINE HCl INJ 50 MG/ML VIAL IM (20:08)
[2024-05-15] MEDS: LORazepam INJ (*CRX) 2 MG/ML VIAL 1 MG IM (21:41)
[2024-05-16 00:36] VITALS: BP 139/77; PULSE 100; RESP 18; O2SAT 98
--- NOTE | 2024-05-16 03:10 | PC.NURSE ---
RN and Tech just changed pt linens and diaper. Taina care was done and cleaning of mattress.
[2024-05-16 06:49] VITALS: BP 119/77; PULSE 76; RESP 18; O2SAT 97
--- NOTE | 2024-05-16 06:57 | PC.NURSE ---
RN changed pt diaper and linens at this time. Pt was wiped clean and favian care was done. No signs of sores at this time.
--- NOTE | 2024-05-16 13:36 | PC.NURSE ---
Update on [facility] - [employer] shift foreman called regarding updated eta with many times given. Day [employer] Reviewer, has called 11:15 a.m., 12:45, and 1:40 updated eta, keep getting told they are enroute but 911 calls are taking priority due to weather.
== END 2024-05-16 14:03 ==
PROVIDERS: Emergency Provider Student in an Organized Health Care Education/Training Program; PCP Internal Medicine
DX: S09.90XA Unspecified injury of head, initial encounter (principal); G20.A1 Parkinson's disease without dyskinesia, without mention of fluctuations; F02.80 Dementia in other diseases classified elsewhere, unspecified severity, without behavioral disturbance, psychotic disturbance, mood disturbance, and anxiety; I10 Essential (primary) hypertension; E78.5 Hyperlipidemia, unspecified; Z90.49 Acquired absence of other specified parts of digestive tract; W19.XXXA Unspecified fall, initial encounter
CPT/HCPCS: 70450; 96372; 99284; J1200; J2060

== ENCOUNTER 2024-08-20 20:13 | Emergency (ER) | payer MEDICARE, MEDICAID, SELFPAY ==
--- NOTE | ~2024-08-20 | XR_ITS ---
XR chest 1V portable Ordering provider: Rishi Unger MD History: 74 years Female with . chest pain . Comparison: None. FINDINGS: MEDIASTINUM: The cardiac silhouette is moderately enlarged. LUNGS: No infiltrates, effusions or pneumothorax. Slightly prominent markings in the left lung base m edially. Devices are projected on the right and left hemithorax. OTHER: No free air under the diaphragm. IMPRESSION: No acute cardiopulmonary pathology. Reviewed, dictated and finalized at location A.
[2024-08-20 20:14] VITALS: PULSE 95; RESP 20; TEMP 37.2; O2SAT 96
[2024-08-20 20:24] VITALS: BP 114/68
--- NOTE | 2024-08-20 20:26 | ECG_ITS ---
Test Date: 2024-08-20 20:26:30 Measurements Intervals [place] Rate: 102 P: 0 KS: 0 QRS: 72 QRSD: 124 T: 34 QT: 333 QTc: 436 Interpretive Statements PROBABLY SINUS RHYTHM (SIGNIFICANT BASELINE ARTIFACT) INTRAVENTRICULAR CONDUCTION DELAY BASELINE ARTIFACT- I, II, III, AVR, AVL, AVF, V1-V6 BORDERLINE ECG No previous ECG available for comparison Electronically Signed On 08-21-2024 06:42:43 CDT by Alonso Bonilla D.O.
--- OUTSIDE RECORDS SUMMARY | 2024-08-20 20:30 | XMS_ITS | Clinical Summary ---
Author Organization [facility] Healthcare Address [address] [place] [address] Care Team Providers Care Demographer Name Role Phone Steve Peraza MD Primary Care Provider [phone] Allergies Active Allergy Reactions Criticality Noted Date Comments Adhesive Redness Low 09/05/2022 Baclofen Mental status changes,Hallucinations High Confusion Egg Swelling High Throat Swelling, Lidocaine Rash Medium 11/30/2021 Penicillin Swelling,Rash Medium Propofol Anaphylaxis High 11/14/2017 Medications acetaminophen (TYLENOL) 325 mg tabletIndicatio ns:Fever,Pain Take 2 tablets (650 mg total) by mouth every 4 (four) hours as needed for pain 30 tablet 9 Active hydroCHLOROthia zide (HYDRODIURIL) 25 mg tablet TAKE 1 TABLET (25 MG TOTAL) BY MOUTH EVERY MORNING. 90 tablet 4 Active zonisamide (ZONEGRAN) 25 mg capsule 4 Active QUEtiapine (SEROquel) 25 mg tabletIndicatio ns:Psychosis associated with Parkinson's Disease Take 1 tablet (25 mg total) by mouth nightly 1 tab qhs 30 tablet 4 09/30/19 25 Active carbidopa-levod opa (SINEMET) 25-100 mg per tablet Take 1 tablet by mouth 3 (three) times a day TAKE one tablet by mouth three times daily (10 AM - 2 PM - 6 PM). 120 tablet 4 Active ALPRAZolam (XANAX) 0.25 mg tablet Take 1 tablet (0.25 mg total) by mouth nightly as needed for anxiety 30 tablet 4 4 Active naproxen (NAPROSYN) 500 mg tablet Take 1 tablet (500 mg total) by mouth 2 (two) times a day with meals 30 tablet 4 Active bisacodyL (DULCOLAX) 10 mg suppositoryIndi cations:constip ation Insert 1 suppository (10 mg total) into the rectum 2 (two) times a day as needed for constipation 4 Active methocarbamoL (ROBAXIN) 500 mg tablet Take 1 tablet (500 mg total) by mouth 3 (three) times a day 4 Active senna (SENOKOT) 8.6 mg tablet Take 1 tablet by mouth 2 (two) times a day 4 01/15/20 25 Active polyethylene glycol (MIRALAX) 17 gram/dose bulk powderIndicatio ns:constipation Take 17 g by mouth daily 4 Active Active Problems Problem Noted Date Diagnosed Date Closed fracture of multiple ribs of right side, initial encounter 01/09/2024 Discharge planning issues 01/09/2024 Assessment & Plan (01/14/2024 12:35 PM CDT): 01/08 Came from Facility 01/09: pending OT recs. PT recs SNF 01/10-01/12: Patient is medically stable for discharge, SW/CM updated. Discharge pending facility acceptance 01/13 Patient is medically stable for discharge, SW/CM updated. Discharge pending insurance authorization Thoracic spine fracture 01/09/2024 Assessment & Plan (01/14/2024 12:38 PM CDT): #T11 superior endplate fx # L2 compression fx. -PVR--> -Non-op Management - TLSO brace (still needs) 01/12 TLSO brace ordered and delivered follow up with ortho spine prn standing scoliosis films in brace - complete Rib fracture 01/09/2024 Assessment & Plan (01/14/2024 12:40 PM CDT): #R 3,4,5 rib fractures - Encourage IS - Multimodal pain control - follow up eval [facility] clinic scheduled 01/30/24 with repeat cxr. Parkinson disease 01/09/2024 Assessment & Plan (01/12/2024 12:16 PM CDT): -Caridoba-Levodopa 25-100 TID - Akathisia and tardive dyskinesia present at baseline Anxiety 01/09/2024 Assessment & Plan (01/10/2024 11:44 AM CDT): -Holding Home Ativan Constipation 01/09/2024 Assessment & Plan (01/14/2024 12:34 PM CDT): -Last BM 6 days KETTLEMAN High stool burden on imaging - Diet: regular, passed bedside swallow - Bowel regimen: miralax, senna 01/09: no BM 01/10: Bmx1 01/13 add dulcolax Multiple closed fractures of ribs of right side 11/30/2021 Assessment & Plan (11/30/2021 7:17 AM CDT): Reviewed rib XRAYS 11/17/21 showing several right sided rib fractures. Continue supportive care and pain control. Uterine mass 11/30/2021 Assessment & Plan (11/30/2021 3:56 PM CDT): Refer for pelvic mass. Numbness 05/25/2019 Rash 10/27/2018 Assessment & Plan (10/27/2018 2:23 PM CDT): Moderate improvement in the last 24 hours. Start clobetasol ointment. Status post deep brain stimulator placement 12/2017 Assessment & Plan (09/30/2023 1:18 PM CDT): Ms. Anderson presented in the medication ON state today. She was not interested in further DBS programming at today's visit, was seen primarily for psychosis but getting DBS check. She is s/p bilateral STN DBS (08/10/2013) and revision of the right connector wire in 2013, replacement of left DBS system after lead fracture on 02/02/19. DBS was interrogated and her system and therapy impedances were wnl with exception of high impedance at contact # 0 on her left DBS. This contact was not in use and can be checked again at next visit. No changes were made to her stimulation today but can consider doing so at upcoming October visit if needed as her MDS- UPDRS was worse today. Recommendations Keep DBS on at all times Follow-up as scheduled 11/03/23 Assessment & Plan (04/16/2023 2:16 PM SOCIETY EDITOR): Ms. Anderson presented in the med on state for further programming. She is s/p bilateral STN DBS (08/10/2013) and revision of the right connector wire in 2013, replacement of left DBS system after lead fracture on 02/02/19 for further programming. She had a fall and hit her head on the table. She was provided with an ice pack from staff at the [facility]. She did not need to seek medical attention. She continued to have leaning to the left and imbalance. She was in RSB twice a week and PT twice a week. Her DBS was interrogated and her therapy and system impedances were wnl. No changes were made to her stimulation. Recommendations Keep DBS on at all times Continue PT- new order provided today to help with leaning posture 3. She is paying $110 a month for RSB. I will follow up to see if she could take classes for free 4. Fall precaution 5. Follow up in 6 months 6. Alternate the levodopa between 0.5-1 tab to improved bothersome dyskinesia. Same quetiapine and zonisamide Assessment & Plan (12/25/2022 2:15 PM CDT): Ms. Anderson presented for further programming. She is s/p bilateral STN DBS (08/10/2013) and revision of the right connector wire in 2013, replacement of left DBS system after lead fracture on 02/02/19. She had her right IPG replaced 09/13/2022. She was doing better since her last visit. She felt stronger. She was attending [facility] twice a week. Her DBS was interrogated and her therapy and system impedances were wnl. No changes were made to her stimulation. Recommendations Keep DBS on at all times No medication changes today Fall precaution Continue RSB and consider PT Follow up in May for DBS and sooner if needed Assessment & Plan (08/20/2022 2:00 PM CDT): Ms. Anderson presented for a follow up. She was not doing well since a few days after her last visit with Dr. Farley. She had a cough that continues especially at night with some chest tightness, sore throat that resolved and not able to finish her program like she normally does at [facility]. She also had more leg weak where her legs froze . She had not followed up with her PCP. Today, her legs were strong with no noted weakness and bilateral strength. She had leaning to the left and bradykinesia, rigidity. Her DBS was interrogated and her left IPG was 2.93 and the right was 2.70. No changes were made. We discussed getting the same Activa SC IPG's. She would be fine to get the right IPG replaced or both. Recommendations: 1. Keep DBS on at all times 2. Refer to Dr. Montenegro for for right IPG replacement within the next 4-6 weeks 3. Follow up with PCP and have urine tested for UTI, Covid, Flu and other respiratory illness and full evaluation of symptoms 4. Follow up in 4 months 5. Fall precaution 6. May continue the zonisamide Assessment & Plan (03/26/2022 11:22 AM SOCIETY EDITOR): Ms. Anderson presented in the med on state for further programming. She was alone. She was doing well overall. She still had imbalance, but this improved with PT earlier this year and she is currently in RSB. Today, she had a cane and was able to stand with assistance and walked with a cane. She had bradykinesia, rigidity, reduced dexterity and hypophonia. She was tearful when she talked about her dog, but she appeared to be in good spirits overall when she she laughed about the front office specialist giving a wheelchair when she did not want one. Her DBS was interrogated and no changes made to her stimulation. Recommendations: 1. Keep DBS on at all times 2. Same levodopa 3. Continue RSB abd restart ST home exercises 4. Fall precaution 5. Follow up in 6 months and sooner if needed for DBS and keep appt in Jun with Dr. Farley Assessment & Plan (09/24/2021 11:56 AM CDT): Ms. Anderson presented in the med ON state for further programming. She continued to have good benefit overall with DBS therapy. She continued ST and PT with benefit. Today on exam, she had a walker, but was able to ambulate without using it. She had a lean to the left, reduced arm swing, reduced dexterity, bradykinesia and her speech was dysarthric. Her DBS was interrogated and her left IPG was 2.96 and her right IPG was 2.86. She had two groups and she was in the lower group in B. No changes were made to her stimulation today. She had her patient developer programmer and was shown how to check the battery level and change settings if needed. She was also provided with printed instructions. Recommendations: 1. Keep DBS on at all times 2. Same levodopa 3. Continue PT/ST 4. Fall precaution 5. Follow up in 6 months and sooner if needed Assessment & Plan (04/11/2021 12:28 PM SOCIETY EDITOR): Ms. Anderson presented in the med ON state for further programming. She was present with her granddaughter and also had a visit with Dr. Farley. Today on exam, she ambulated with a cane, her gait was slow and she took short steps. She had bradykinesia, rigidity and reduced dexterity. She had dyskinesia and leaned to the left. Her speech was hypophonic. She had right hand tremor. Her DBS was interrogated and she had groups A and B and was in group A the higher stimulation- bilaterally. She was switched to her group B with a one tenth decrease- bilaterally. She was more bothered by the dyskinesia as it could be slightly painful and not as bothered by the right hand tremor. Her exam did not change after the decrease and her dyskinesia was about the same. Recommendations: 1. Keep DBS on at all times 2. Same levodopa and may adjust by 0.25-0.5 tabs needed and tolerated 3. Medications per Dr. Farley today- he decreased her propranolol LA from 120 mg to 60 mg 4. Follow up in 2 months for a zoom visit to assess mood and may start Cymbalta if needed 5. Follow up in 6 months for DBS 6. Fall and swallow precaution 7. Start PT/ST- she have orders and plan to start after the hols Assessment & Plan (02/06/2021 12:04 PM CDT): Ms. Anderson presented in the med OFF state for further programming. She was present with her friend. She continued to have good benefit overall with DBS therapy, but continued to have worsening progression in her gait and balance. Today on exam, she used a cane to ambulate. She had reduced arm swing, took short steps and when she turned direction, she had some gait freezing. She had moderate right hand resting tremor and mild tremor in her left leg. She also had bradykinesia, reduced dexterity and rigidity. Her speech was dysarthric and soft. Her DBS was interrogated and no changes were made to her stimulation today. Recommendations: 1. Keep DBS on at all times 2. Swallow precaution and strict fall precaution and use devices 3. Start PT for imbalance and ST for dysphagia and dysarthria- orders provided today 4. Keep future appt on 04/[address] Farley and for DBS and may consider a slight increase at that time if appropriate 5. Same levodopa and may adjust by 0.5 tab as needed and tolerated 6. Follow up with pcp for right hand pain and swelling from recent fall Assessment & Plan (08/02/2020 12:14 PM CDT): Overall, Ms. Anderson had being doing well and she continued to live in an assisted living facility. In the OFF state today she had right arm and bilateral leg tremor, bradykinesia, obvious kyphosis and stooped posture. She had to use her walker to walk. She wanted to make a small increase(1/10th) in her had near tremor resolution with the increase in the left DBS today. We made that change in Group A and left Group B as the setting she came to clinic with to go back to incase of side effects. For right DBS we tried a small increase and she could not tolerate it so we did not make any changes. She tolerated the programming without any persistent paraesthesia, tingling, dysarthria or change in balance. There was no immediate change in her gait, rigidity or bradykinesia with the increase today. She was interested in starting PT, OT and ST, will send for referral. Reviewed fall precautions. Overall, she remained pleased with her response to DBS therapy. Recommendations: 1. Keep DBS on at all times. For left DBS may switch to Group B with previous setting incase of any side effects. 2. Continue current dose of levodopa. May adjust by 1/2 tab as needed 3. Strict fall precautions. Continue home exercise 4. Start PT, OT and ST, rx sent Assessment & Plan (07/19/2019 12:52 PM CDT): Ms. Anderson had near tremor resolution with the increase in DBS today. There was no immediate change in her gait, rigidity or bradykinesia with the increase today. She had left eye deviation for less than 3 secmds during the impedance checks today. This happened during testing when her right DBS lead was replaced (at 3V). This resolved completely after the few seconds. Fall precautions reviewed and she was encouraged to continue her home exercise routine. Overall, she remained pleased with her response to DBS therapy. Recommendations: 1. Keep DBS on at all times. 2. Continue current dose of levodopa. 3. Strict fall precautions. Continue home exercise 4. Programming note: She had left eye deviation for less than 3 seconds during the impednace checks today. This happened turing testing when her lead was replaced (at 3V). Assessment & Plan (06/18/2019 2:21 PM SOCIETY EDITOR): Ms. Anderson had near tremor resolution for right side after 0.3V increase of stimulation but developed right hand 4th and 5th digit dystonia. This wasn't painful and resolved after decreasing stimulation by 0.1V. Her left sided tremor also was greatly reduced with the increase of simulation for the left DBS but right DBS was also increased slightly. Overall, she had less tremor, without any change in rigidity, bradykinesia or dexterity but she was off levodopa since 6p the prior day. She was instructed to take just the first dose of the day for afternoon programming appointments from now on. She had left eye deviation for less than 3 secmds during the impednace checks today. This happened turing testing when her lead was replaced (at 3V). She was interested in ST for dysphagia and hypophonia but wanted the same therapist as in the past. She will call with the contact information. Fall precautions reviewed and she was encouraged to continue her home exercise routine. Overall, she remained pleased with her response to DBS therapy. Recommendations: 1. Keep DBS on at all times. 2. Continue current levodopa but may adjust by 1/4 to 1/2 tab as needed. May take at 3 1/2 hour interval and take 5 doses per day. 3. Strict fall precautions. Continue home exercise 4. Pt to call with contact information for preferred ST 5. EMG/NCS per Dr. Loco's orders 6. Programming note: She had left eye deviation for less than 3 seconds during the impednace checks today. This happened turing testing when her lead was replaced (at 3V). Assessment & Plan (05/24/2019 12:41 PM SOCIETY EDITOR): Ms. Anderson had less right hand tremor and some improvement of dexterity after today's increase of stimulation. She was hopeful that a bilateral increase of simulation would improve her ability to arise from a sitting position but this caused marked facial dystonia. She had Hx of left hand digit 3,4,5 paresthesia x1 month, not positional, no neck or wrist pain. DBS was turned off and there was no change in the sensation. When attempting to resume the best identified setting, she gain developed facial pulling at 2.6V-the best identified setting to date. When stimulation was decreased to 2.5V the dystonia resolved and there was no worseing of dexterity or tremor. Dr. Loco examined her and recommended EMG. She was interested in ST for dysphagia and hypophonia but wanted the same therapist as in the past. She will call with the contact information. Fall precautions reviewed and she was encouraged to continue her home exercise routine. Overall, she remained pleased with her response to DBS therapy. Recommendations: 1. Keep DBS on at all times. 2. Continue current levodopa but may adjust by 1/4 to 1/2 tab as needed 3. Strict fall precautions. Continue home exercise 4. Pt to call with contact information for preferred ST 5. EMG/NCS per Dr. Loco's orders Assessment & Plan (04/05/2019 3:10 PM SOCIETY EDITOR): Ms. Anderson had improvement since her left DBS was re-activated. She still had tremor and bradykinesia with difficulty picking up her right foot. She tolerated today's increase well and with no worsening. Her voice was a bit louder with no increased dysarthria. She had close to tremor resolution, and improved gait stability. Her right IPG was not changed. She will still require levodopa dosing to benefit her right body and her dyskinesia is very bothersome to her. Fall precautions reviewed and she will see Dr. Farley after this visit as well. 1. Keep DBS on at all times. 2. Medications per Dr. Farley today 3. Fall precautions Assessment & Plan (03/12/2019 12:32 PM CDT): Although both 0 and 1 contact did abolish tremor, they both caused her eyes to c ross. This was not apparent but she was uncomfortable with testing these two contacts. The 2 and 3 contact led to full tremor resolution and the 3 contact had a wider range from tremor resolution to onset of any side effect but dexterity wasn t as good. At the final setting today, she was nearly tremor free with 1.2V off medication and dexterity improved, she had less rigidity. No programming was done for the left DBS as when stimulation was at 2 volts for the new left DBS system, her left sided tremor resolved. This pattern was apparent with each contact tested today. She was agreeable to waiting until the next visit to assess left sided response further, with both DBS systems on. She was not released by Dr. Montenegro yet for exercise but was receptive to additional therapies early next year. Overall she and her daughter remained pleased with her response to DBS therapy. 1. Keep DBS on at all times. 2. Continue current levodopa but may adjust by 1/4 to 1/2 tab as needed 3. Strict fall precautions. Resume home exercise when released by neurosurgery. Assessment & Plan (12/01/2018 12:30 PM CDT): Upon interrogation today, the left DBS read HIGH on impedance and did not display a current. With a full system check, the impedances for 0, 2 and 3 as monopolar and bipolar were abnormal and elevated. The 1 contact appeared normal. We elected to change her active left DBS contact from 2 to 1 and this resolved the abnormal impedance and current that is suggestive of an open circuit. She denied any recent trama to the DBS system. At the final settings, the left hand tremor resolved and her right side dexterity improved and rigidity reduced. She was pleased with her current benefit and had no dyskinesias from DBS alone. She was warned that she may develop dyskinesias with levodopa and both DBS on and functioning again and was told to adjust levodopa by 1/4 or 1/2 tabs if needed. We discussed that if the new 1 contact does not provide adequate benefit for her right side, then we may need to consider surgical revision of the left DBS connector wire with Dr. Montenegro. She understood. We will proceed with a DBS series x-ray today to evaluate the integrity of the left DBS system. She will call the office with any further concerns after the visit today. 1. Keep DBS on at all times. 2. DBS series x-ray today to evaluate left DBS malfunction. 3. Strict fall precautions and exercise as tolerated. 4. Same levodopa and levodopa CR. Assessment & Plan (08/10/2018 12:46 PM CDT): Ms. Anderson continued to do well, but had trouble with dyskinesia with q 4 hour dosing and dystonia return with 5 hour dosing. She wanted to try a reduction in DBS voltage to allow her to tolerate the q 4 hour dosing. She was reduced bilaterally by 0.2 volt and had mild, intermittent tremor return. She will try this and had a B setting given today with her start and best identified setting. We reviewed how to change her DBS back to B if needed. She was provided with written instructions for this today and encouraged to call our office with any questions. 1. Keep DBS on at all times. May switch back to B setting for worsening OFF state 2. Fall precautions and regular exercise. 3. Continue PT/OT/ST exercises 4. Same medicaitons Encounter for medication review 01/23/2018 Assessment & Plan (01/13/2024 12:18 PM CDT): Dispense report: Zonisamide 25/day Seroquel 25/day Methocarbamol 500 BID HCTZ 25/day Carbidopa-Levodopa 25-100 QID Health Insurance Coverage: [facility] Medicare Prescription Coverage: yes Pharmacy: [facility], [place] - [address] [phone] [employer] - [place], [place] - [address] [facility] [address] Primary Care Provider: Steve Peraza MD Assessment & Plan (01/23/2018 7:13 AM CDT): Reviewed diet and exercise goals. Await Annual labs. Reviewed immunization and screening status. Chronic issues are as follows; Class 2 obesity due to exces s calories without serious comorbidity with body mass index (BMI) of 36.0 to 36.9 in adult 01/23/2018 Assessment & Plan (01/23/2018 9:59 AM CDT): BMI is more than 30, reviewed calorie restrictions. Anaphylactic shock, unspecified, initial encount er 11/14/2017 Arthritis 02/10/2017 Lumbago 02/10/2017 Assessment & Plan (07/24/2018 10:15 AM CDT): She has DJD and herniated lumbar disk. She has done PT. She uses hydrocodone as needed. Lumbar radiculopathy 02/10/2017 Degeneration of intervertebral disc of lumbar re gion 02/10/2017 Chronic bilateral low back pain with sciatica Assessment & Plan (01/23/2018 7:15 AM CDT): Continue ROM exercises. Diazepam as needed. Assessment & Plan (07/17/2017 1:57 PM SOCIETY EDITOR): Symptoms are improved. Reviewed core strengthening. Reviewed ROM exercises. Assessment & Plan (01/17/2017 11:29 AM CDT): Continue gabapentin and diazepam. Follow with neurology.Reviewed core strengthening. Reviewed ROM exercises.Start hydrocodone. Restless legs 07/31/2015 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 Anxiety state 09/25/2013 Overview (08/15/2016): ANXIETY STATE NOS Assessment & Plan (05/08/2023 3:13 PM SOCIETY EDITOR): Reviewed stress reduction techniques. Continue alprazolam. Assessment & Plan (05/23/2022 5:57 AM SOCIETY EDITOR): Reviewed stress reduction techniques.Symptoms are controlled off alprazolam. Assessment & Plan (01/09/2021 1:14 PM CDT): Reviewed stress reduction techniques. Assessment & Plan (11/05/2019 2:09 PM CDT): Symptoms are improved. Monitor off alprazolam. Hyperlipidemia 09/25/2013 Overview (08/15/2016): HYPERLIPIDEMIA NEC/NOS Parkinson's disease 04/02/2013 Assessment & Plan (09/30/2023 1:25 PM CDT): She had stage 3 parkinsonism characterized by asymmetric resting tremor, bradykinesia, rigidity and postural instability as well as hypophonia, hypomimia and difficulty arising from chairs. She he mild cognitive impairment at best with historically visual illusions/misperceptions and has gradually developed worsening psychosis characterized by nocturnal visual hallucinations and paranoia/suspicious thinking. Up until now she has been managing her own medications and I am concerned she had not been taking her previously prescribed quetiapine back in July and though dose was recently increased to 25 mg nightly she has continued taking only 1/2 tab which is very likely the 12.5 mg. She has historically had worsening dyskinesias and hallucinations on higher levodopa dosing. Although she is currently only taking 1/2 tab at each dose, she is going to sleep around 10 PM and taking a dose at bedtime for unclear reasons as she notes tremor improves throughout the day and is gone by nighttime. As her psychosis is worse at night we discussed ensuring she is taking the quetiapine 25 mg nightly and stopping her fourth/10 PM dose of levodopa, instead taking it only three times daily to see if the combination of adjustments helps to improve psychosis. I discussed with her assisted living staff the medication changes and requested that they begin helping her with medication management. I also recommended PT for walking and balance. Can consider DBS adjustment at next visit. Recommendations: Change carbidopa-levodopa IR 25/100 mg to TID from QID (10 AM, 2 PM, 6 PM), stopping the fourth dose/nighttime dose at 10 PM Continue taking quetiapine 25 mg nightly for hallucinations/suspicious thinking Update our office in 2 weeks Start physical therapy for walking, balance, freezing of gait - new referral placed Ensure medications are correct - needs assistance with managing her medications Follow-up as scheduled 11/05/23 at 2 pm for DBS programming NPT next visit Assessment & Plan (05/08/2023 5:40 AM SOCIETY EDITOR): Continue Sinemet. Continue Neurology care. Assessment & Plan (07/08/2022 4:07 PM SOCIETY EDITOR): She had stage 3 parkinsonism characterized by asymmetric resting tremor, bradykinesia, rigidity and postural instability as well as hypophonia, hypomimia and difficulty arising from chairs. She he mild cognitive impairment at best with some visual illusions. She took very low dose levodopa as she was doing quite well with bilateral STN DBS. Higher doses of levodopa in the past caused dyskinesia and hallucination. She also had bothersome dyskinesias. We could consider additional zonisamide which can help. Alternatively we could consider a second set of DBS electrodes targeting the bilateral GPI nuclei to treat the bothersome dyskinesias since she could not tolerate any more levodopa. She had low mood that was likely a combination of dysthemia dealing with the loss of her mother, dog and the relationship with her daughter and baseline depression. She needs ST. Assessment & Plan (05/23/2022 5:56 AM SOCIETY EDITOR): Continue Sinemet. Continue Neurology care. Assessment & Plan (11/30/2021 7:17 AM CDT): Continue Sinemet. Continue Neurology care. Assessment & Plan (06/25/2021 12:21 PM SOCIETY EDITOR): Ms. Anderson presented for a follow up via telemedicine. She was doing better than when she was here last in [facility]. She did not have falls and her mood was better. She did stop taking the propranolol since April and felt her walking and balance although still poor, improved since stopping it. Today she had decreased dexterity, bradykinesia, her speech was dysarthric and she had dyskinesia in her upper body. She was interested in PT/ST, but had to pay $45 for each session and could not afford this. She will let us know when she would like to start. Recommendations: 1. Keep DBS on at all times 2. Same levodopa and may adjust by 0.25-0.5 tab as needed 3. May consider Cymbalta for mood in the future if needed 4. Watch blood pressure and let us know if she will like to restart propranolol 5. Fall/swallow precaution 6. [employer] YouTube channel provided 7. Do the home exercises provided by ST previously 8. Keep DBS appt for September Assessment & Plan (04/11/2021 11:44 AM SOCIETY EDITOR): She had stage 3 parkinsonism characterized by asymmetric resting tremor, bradykinesia, rigidity and postural instability as well as hypophonia, hypomimia and difficulty arising from chairs. She he mild cognitive impairment at best with some visual illusions. She took very low dose levodopa as she was doing quite well with bilateral STN DBS. Higher doses of levodopa in the past caused dyskinesia and hallucination. At this time she was bothered most by mood symptoms. She took escitalopram in the past but it caused emotional blunting and she stopped it 5 years ago. Recently she had apathy with some easy crying on exam today. She was also taking propranolol for her tremor, though she was not sure it helped her tremor at all. I suggested tapering propranolol to 60 mg LA for the next month and then stopping it for a month. Then she should be reevaluated via telemedicine by one of our City Clerk to determine if mood and tremor are any better or worse. If tremor is worse then we can consider increasing DBS vs. Restarting propranolol. If mood is better then no need to start an antidepressant. If mood is the same or worse then I would start duloxetine 20 mg BID. Assessment & Plan (01/09/2021 1:13 PM CDT): Continue Sinemet. Continue Neurology care. Assessment & Plan (03/06/2020 1:28 PM CDT): idiopathic Parkinson disease: Ms. 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 She had bilateral STN DBS in 2013 with reoperation in 2019. She was doing very well with DBS and low dose levodopa. She was relatively happy with her current therapy. We evaluated battery life over the phone today and both IPGs were over 2.9v. She was lonely and isolated due to COVID19 but had no jayshree depression.. Insomnia was better with melatonin and a good schedule. I will not change therapy today. Recommendations: 1. Keep stimulators turned on at all times. 2.Continue levodopa IR 3.refer to ST for swallow evaluation and treatment 4. same melatonin Assessment & Plan (11/05/2019 9:34 AM CDT): Continue Sinemet. Continue Neurology care. Assessment & Plan (07/24/2018 7:59 AM CDT): Reviewed recent hospitalization. Continue Sinemet. Assessment & Plan (01/23/2018 7:14 AM CDT): Continue sinemet and Neurology care. Assessment & Plan (07/17/2017 8:21 AM SOCIETY EDITOR): Continue Sinemet and neurology care. Assessment & Plan (01/17/2017 7:41 AM CDT): Continue neurology care and Sinemet. Hypertension 04/02/2013 Assessment & Plan (05/08/2023 5:40 AM SOCIETY EDITOR): Hypertension is controlled. Continue current regimen. Assessment & Plan (05/23/2022 5:57 AM SOCIETY EDITOR): Hypertension is controlled. Continue current regimen.Reviewed normal creatinine 11/19/21. Assessment & Plan (11/30/2021 3:55 PM CDT): Hypertension is controlled. Continue current regimen. Assessment & Plan (01/09/2021 1:13 PM CDT): Hypertension is controlled. Continue current regimen. Assessment & Plan (11/05/2019 9:33 AM CDT): Hypertension is controlled. Continue current regimen. Assessment & Plan (07/24/2018 7:59 AM CDT): Hypertension is controlled. Continue current regimen. Reviewed recent BMP. Assessment & Plan (01/23/2018 7:14 AM CDT): Hypertension is controlled. Continue current regimen. Assessment & Plan (07/17/2017 8:20 AM SOCIETY EDITOR): Hypertension is controlled. Continue current regimen. Assessment & Plan (01/17/2017 7:41 AM CDT): Hypertension is controlled. Continue current regimen. Removed low sodium diet. Resolved Problems Problem Noted Date Diagnosed Date Resolved Date Acute respiratory failure with hypoxia 11/14/2017 07/24/2018 Chronic pain 02/10/2017 12/02/2017 Immunizations Immunization Administration Dates Next Due Influenza, Unspecified 05/23/2022(Deferred: Fly kothari) Pfizer SARS-CoV-2 Monovalent Vaccination (12+ Yrs) PURPLE 11/16/2021,03/06/2021 Pneumococcal Polysaccharide PPV23 09/06/2019 Surgical History Surgery Date Site/Laterality Comments EAR SURGERY x3 INSERTION / REMOVAL CRANIAL DBS GENERATOR 05/12/2017 - 05/11/2018 CHOLECYSTECTOMY 1980s FLUORO GUIDED ASPIRATION OR INJECTION LARGE JOINT RIGHT 06/10/2018 Right DEEP BRAIN STIMULATOR PLACEMENT 05/12/2018 - 05/11/2019 Medical History Medical History Date Comments Hx Other Medical dystonia Hx Other Medical 2013 sacral fracture ; no surgery Hx Other Medical osteoperosis 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 Tremor Hypertension Anxiety Parkinson disease (HCC) Stroke (HCC) 1973 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 Acute respiratory failure re quiring reintubation (HCC) 11/14/2017 Family History Medical History Relation Name Comments Hypertension Brother 1 Family history of hypertension - (Added by Conv) Stroke Brother 2 Family history of cerebrovascular accident (CVA) - (Added by Conv) Alzheimer's disease Father Alzheime r's Disease; Blood Clot Father Coronary artery disease Father Heart attack Father Hypertension Father Family history of hypertension - (Added by TW Conv) Heart failure Mother Hypertension Mother Family history of hypertension - (Added by TW Conv) Stroke Mother Family history of cerebrovascular accident (CVA) - (Added by TW Conv) Valvular heart disease Mother Hypertension Other 3 Hypertension; Hyperlipidemia Other 4 Hyperlipidemi a; Hypertension Other 5 Family history of hypertension - Relation: Grandparent (Added by Conv) Cancer Other 6 Family history of cancer - Relation: Grandparent (Added by Conv) Diabetes Other 7 Family history of diabetes mellitus - Relation: Grandparent (Added by Booklr Conv) Heart attack Paternal Grandfather Anesthesia problems Neg Hx Relation Name Status Comments Brother 1 Brother 2 Father Mother Other 1 Alive Other 2 Alive Other 3 Other 4 Other 5 Other 6 Other 7 Paternal Grandfather Social History Tobacco Use Types Packs/Day Years Used Date Smoking Tobacco: Never Passive Smoke Exposure: Never Smokeless Tobacco: Never Tobacco Cessation:Counseling Given: Not Answered Alcohol Use Standard Drinks/Week Comments No 0 (1 standard drink = 0.6 oz pur e alcohol) AUDIT-C Answer Date Recorded Q1: How often do you have a drink containing alc ohol? Never 09/13/2022 Average Number of Drinks Not on file 023 Q3: How often do you have si x or more drinks on one occasion? Never 09/13/2022 PHQ-2 Answer Date Recorded PHQ-2 Total Score (If total score is 3 or more points, staff should administer the PHQ-9) 0 05/23/2022 Personal Safety Answer Date Recorded Have you ever been in or are you currently in a harmful physical or emotional relationship or is someone making you feel afraid or unsafe? Denies 01/09/2024 Comments No Sex and Gender Information Value Date Recorded Sex Assigned at Not on file Legal Sex Female 11:32 PM SOCIETY EDITOR Gender Identity Not on file Sexual Orientation Not on file Occupation Industry Job Start Date Job End Date retired Not on file Not on file Not on file Obstetrics History Last Filed Vital Signs Vital Sign Reading Time Taken Comments Blood Pressure 127/81 01/15/2024 3:34 PM CDT Pulse 102 01/15/2024 3:34 PM CDT Temperature 36.4 C (97.5 F) 01/15/2024 3:34 PM CDT Respiratory Rate 18 01/15/2024 3:34 PM CDT Oxygen Saturation 94% 01/15/2024 3:34 PM CDT Inhaled Oxygen Concentration - - Weight 63 kg (138 lb 14.4 oz) 01/09/2024 4:04 AM CDT Height 157.5 cm (5' 2 ) 01/09/2024 4:04 AM CDT Body Mass Index 25.41 01/09/2024 4:04 AM CDT Plan of Treatment Health Maintenance Due Date Last Done Comments Breast Cancer Screening-Mammogram 1950 Colon Cancer Screening-Colonoscopy 1950 Hepatitis C Screening 1950 Osteoporosis Screening-Bone Density Scan 1950 DTaP/Tdap/Td Vaccine (1 - Tdap) 07/13/1962 Hepatitis B Screening 07/13/1969 Zoster Vaccine (1 of 2) 07/13/2001 Well Visit 65+ 01/23/2019 01/23/2018 Pneumococcal vaccine 65+ (2 of 2 - PCV) 09/05/2020 09/06/2019 Depression Screening 05/23/2023 05/23/2022, 01/09/2021, 03/10/2020, Additional history exists Covid-19 Vaccine (5 - 2023-2 5 season) 2024 11/16/2021, 03/06/2021, 07/10/2020, Additional history exists Influenza Vaccine (#1) 2024 Fall Risk Assessment 01/14/2025 01/15/2024, 08/22/2022, 01/09/2021, Additional history exists Colon Cancer Screening-DNA Stool Discontinued 06/17/19 Colon Cancer Screening-FIT Discontinued 06/17/2022 Medical Devices Implanted Type Area Driveway Attendant Device Identifier Shelf Expiration Date Model / Serial / Lot Dbs Bilateral: Brain Medtronic Neuro [id number] Activa Sc 2.4inx2.2in .4in 1 Channel Quadripolar Multiprogram - [id number] - [id number] Implanted:Qty: 1 on 11/14/2017 by Gui Montenegro MD at [facility] Left: Chest Medtronic Neuro 03/25/2019 [id number] / [id number] / Medtronic Neuro [id number] Activa Sc 2.4inx2.2in .4in 1 Channel Octapolar Multiprogram - [id number] - [id number] Implanted:Qty: 1 on 02/02/2019 by Gui Montenegro MD at [facility] Left: Chest Medtronic Inc 06/25/2020 [id number] / [id number] / Davol Inc/C R Bard [id number] Bard Marlex 6x6in Monofilament Gold Standard Flat Sheet Groin - [id number] Implanted:Qty: 1 on 02/02/2019 by Gui Montenegro MD at [facility] Left: Chest Davol Inc/C R Bard 09/07/2023 [id number] / / [id number] Medtronic Neuro 3389s-40 Stimloc 40cm Spinal Cord .5mm Space Kit Neurostimulator Lead - [id number] Implanted:Qty: 1 on 02/02/2019 by Gui Montenegro MD at [facility] Medtronic Inc 12/01/2022 [id number] / / [id number] Biomet KDWixation Inc Od2 Mm L[address] Maxillofacial Screw Bone Titanium - [id number] Implanted:Qty: 4 on 02/02/2019 by Gui Montenegro MD at [facility] Left: Cranial Morena Biomet Inc / / Biomet Microfixation Inc 4 Hole Straight Mandible Regular Plate Bone Titanium Sterile 2mm - [id number] Implanted:Qty: 2 on 02/02/2019 by Gui Montenegro MD at [facility] Left: Cranial Morena [employer] Inc / / Medtronic Neuro 41069-69 Dbs 3.8-1.3mm 1.5mm 60cm Quadripolar Distal Octapolar Proximal - [id number] - [id number] Implanted:Qty: 1 on 02/02/2019 by Gui Montenegro MD at [facility] Left: Head Medtronic Inc 12/24/2022 [id number] / [id number] / Medtronic Inc Stimulator Activa [id number] - [id number] Implanted:Qty: 1 on 09/13/2022 by Gui Montenegro MD at [facility] Right: Chest Medtronic Inc 08/24/2023 [id number] / / Explanted Type Area Driveway Attendant Device Identifier Shelf Expiration Date Model / Serial / Lot Medtronic Neuro [id number] Activa Sc 2.4inx2.2in .4in 1 Channel Octapolar Multiprogram - [id number] - [id number] Explanted:Qty: 1 on 02/02/2019 by Gui Montenegro MD at [facility] Medtronic Inc [id number] / [id number] / Biomet Microfixation Inc Od2 Mm L[address] Maxillofacial Screw Bone Titanium - [id number] Explanted:Qty: 4 on 02/02/2019 at [facility] Left: Cranial Morena Biomet Inc / / Biomet Microfixation Inc 4 Hole Straight Mandible Regular Plate Bone Titanium Sterile 2mm - [id number] Explanted:Qty: 2 on 02/02/2019 at [facility] Left: Cranial Morena [employer]omet Inc / / Medtronic Neuro [id number] Activa Sc 2.4inx2.2in .4in 1 Channel Quadripolar Multiprogram - [id number] - [id number] Implanted:Qty: 1 on 11/14/2017 by Gui Montenegro MD at [facility] Explanted:Qty: 1 on 09/13/2022 by Gui Montenegro MD at [facility] Right: Chest Medtronic Neuro 03/25/2019 [id number] / [id number] / Procedures Procedure Name Priority Date/Time Associated Diagnosis Comments STOOL DNA COLOGUARD Routine 06/17/2022 7:00 PM SOCIETY EDITOR Colon cancer screening from Last 3 Months or Most Recently Relevant to Health Maintenance Results * Stool DNA - Cologuard (06/17/2022 7:00 PM SOCIETY EDITOR) Stool DNA - Cologuard Negative Negative [facility] (CLIA #:[id number]) Comment: NEGATIVE TEST RESULT. A negative Cologuard result indicates a low likelihood that a colorectal cancer (CRC) or advanced adenoma (adenomatous polyps with more advanced pre-malignant features) is present. The chance that a person with a negative Cologuard test has a colorectal cancer is less than 1 in 1500 (negative predictive value >99.9%) or has an advanced adenoma is less than 5.3% (negative predictive value 94.7%). These data are based on a prospective cross-sectional study of 10,000 individuals at average risk for colorectal cancer who were screened with both Cologuard and colonoscopy. (Adilson Abarca. et al, N Engl J Med 2014;370(14):5185-2017) The normal value (reference range) for this assay is negative. COLOGUARD RE-SCREENING RECOMMENDATION: Periodic colorectal cancer screening is an important part of preventive healthcare for asymptomatic individuals at average risk for colorectal cancer. Following a negative Cologuard result, the [place] Cancer Society and U.S. Multi-Society Task Force screening guidelines recommend a Cologuard re-screening interval of 3 years. References: [place] Cancer Society Guideline for Colorectal Cancer Screening: https://www.cancer.org/cancer/kathk-wkvpzj-hgswem/dhofathgq-qbnogerui-wtshspv/ac s-rec ommendations.html.; Sulaiman ZAMARRIPA, Stephanie GRECO, Arnel CunninghamK, Colorectal Cancer Screening: Recommendations for Physicians and Patients from the U.S. Multi-Society Task Force on Colorectal Cancer Screening , Am J Gastroenterology 2017; 112:7474-1484. TEST DESCRIPTION: Composite algorithmic analysis of stool DNA-biomarkers with hemoglobin immunoassay. Quantitative values of individual biomarkers are not reportable and are not associated with individual biomarker result reference ranges. Cologuard is intended for colorectal cancer screening of adults of either sex, 45 years or older, who are at average-risk for colorectal cancer (CRC). Cologuard has been approved for use by the U.S. FDA. The performance of Cologuard was established in a cross sectional study of average-risk adults aged 50-84. Cologuard performance in patients ages 45 to 49 years was estimated by sub-group analysis of near-age groups. Colonoscopies performed for a positive result may find as the most clinically significant lesion: colorectal cancer [4.0%], advanced adenoma (including sessile serrated polyps greater than or equal to 1cm diameter) [20%] or non- advanced adenoma [31%]; or no colorectal neoplasia [45%]. These estimates are derived from a prospective cross-sectional screening study of 10,000 individuals at average risk for colorectal cancer who were screened with both Cologuard and colonoscopy. (Adilson Fox al, N Engl J Med 2014;370(14):5569-1197.) Cologuard may produce a false negative or false positive result (no colorectal cancer or precancerous polyp present at colonoscopy follow up). A negative Cologuard test result does not guarantee the absence of CRC or advanced adenoma (pre-cancer). The current Cologuard screening interval is every 3 years. ([place] Cancer Society and U.S. Multi-Society Task Force). Cologuard performance data in a 10,000 patient pivotal study using colonoscopy as the reference method can be accessed at the following location: www.[employer]/results. Additional description of the Cologuard test process, warnings and precautions can be found at www.[employer]oteIt[employer].com. Stool 06/17/2022 7:00 PM SOCIETY EDITOR 06/19/2022 12:08 PM SOCIETY EDITOR Steve Peraza MD LAB BODY FLUIDS AND STOOLS OR DERABLES Final Result [facility] (CLIA #:[id number]) [address] [address] from Last 3 Months or Most Recently Relevant to Health Maintenance Insurance [facility] MEDICARE [facility]ANT[facility] Address: [address] [address] [place] [address] [facility] MEDICARE ADVANTAGE [facility] MEDICARE ADVANTAGE Advance Directives For more information, please contact: [phone] Documents on File Type Date Recorded Patient Disc Pad Grinder Expl anation ADVANCE DIRECTIVE 11/19/2021 2:53 PM POLST - Phys Order for PT Preferences * Full Code (Latest Code Status on File) Date Activated Date Inactivated Comments 01/09/2024 4:15 AM 01/15/2024 10:14 PM * Full Code Date Activated Date Inactivated Comments 02/02/2019 1:36 PM 02/03/2019 3:11 PM * Full Code Date Activated Date Inactivated Comments 07/08/2018 5:25 PM 07/09/2018 10:08 PM * Full Code Date Activated Date Inactivated Comments 11/14/2017 11:20 AM 11/15/2017 7:12 PM Care Teams Demographer Relationship Specialty Start Date End Date Steve Peraza MD [id number] [id number] PCP - General 08/09/16
--- OUTSIDE RECORDS SUMMARY | 2024-08-20 20:30 | XMS_ITS | Referral Summary ---
Author Organization [facility] Healthcare Address [address] [place] [address] Care Team Providers Care Prison Teacher Name Role Phone Steve Peraza MD Primary Care Provider [phone] Allergies Active Allergy Reactions Criticality Noted Date [...] 12:34 PM CDT): -Last BM 6 days IMPORT EXPORT COORDINATOR High stool burden on imaging - Diet: [...] 11/03/23 Assessment & Plan (04/16/2023 2:16 PM NEEDLE LEADER): Ms. Anderson presented in the med on state for further programming. She is s/p bilateral STN DBS (08/10/2013) and revision of the right connector wire in 2013, replacement of left DBS system after lead fracture on 02/02/19 for further programming. She had a fall and hit her head on the table. She was provided with an ice pack from staff at the [facility]. She did not need to seek medical [...] visit. She felt stronger. She was attending Dome[employer] twice a week. Her DBS was interrogated [...] zonisamide Assessment & Plan (03/26/2022 11:22 AM NEEDLE LEADER): Ms. Anderson presented in the med on [...] when she she laughed about the front end mechanic giving a wheelchair when she did not [...] her stimulation today. She had her patient programmer or analyst and was shown how to check the battery level and change settings if needed. She was also provided with printed instructions. Recommendations: 1. Keep DBS on at all times 2. Same levodopa 3. Continue PT/ST 4. Fall precaution 5. Follow up in 6 months and sooner if needed Assessment & Plan (04/11/2021 12:28 PM NEEDLE LEADER): Ms. Anderson presented in the med ON [...] 3V). Assessment & Plan (06/18/2019 2:21 PM NEEDLE LEADER): Ms. Anderson had near tremor resolution for [...] 3V). Assessment & Plan (05/24/2019 12:41 PM NEEDLE LEADER): Ms. Anderson had less right hand tremor [...] orders Assessment & Plan (04/05/2019 3:10 PM NEEDLE LEADER): Ms. Anderson had improvement since her left [...] 25/day Carbidopa-Levodopa 25-100 QID Health Insurance Coverage: [facility] Medicare Prescription Coverage: yes Pharmacy: [facility], [place] - [address] [id number] [facility] - [place], [place] - [address], [address], [address] [facility] [address] Primary Care Provider: Steve Peraza MD Assessment [...] needed. Assessment & Plan (07/17/2017 1:57 PM NEEDLE LEADER): Symptoms are improved. Reviewed core strengthening. Reviewed ROM exercises. Assessment & Plan (01/17/2017 11:29 AM CDT): Continue gabapentin and diazepam. Follow with neurology.Reviewed core strengthening. Reviewed ROM exercises.Start hydrocodone. 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 Continue alprazolam. Assessment & Plan (05/23/2022 5:57 AM NEEDLE LEADER): Reviewed stress reduction techniques.Symptoms are controlled off [...] visit Assessment & Plan (05/08/2023 5:40 AM NEEDLE LEADER): Continue Sinemet. Continue Neurology care. Assessment & Plan (07/08/2022 4:07 PM NEEDLE LEADER): She had stage 3 parkinsonism characterized by [...] ST. Assessment & Plan (05/23/2022 5:56 AM NEEDLE LEADER): Continue Sinemet. Continue Neurology care. Assessment & Plan (11/30/2021 7:17 AM CDT): Continue Sinemet. Continue Neurology care. Assessment & Plan (06/25/2021 12:21 PM NEEDLE LEADER): Ms. Anderson presented for a follow up via telemedicine. She was doing better than when she was here last in [facility]. She did not have falls and her [...] September Assessment & Plan (04/11/2021 11:44 AM NEEDLE LEADER): She had stage 3 parkinsonism characterized by [...] reevaluated via telemedicine by one of our Plastics Scientist to determine if mood and tremor are [...] care. Assessment & Plan (07/17/2017 8:21 AM NEEDLE LEADER): Continue Sinemet and neurology care. Assessment & Plan (01/17/2017 7:41 AM CDT): Continue neurology care and Sinemet. Hypertension 04/02/2013 Assessment & Plan (05/08/2023 5:40 AM NEEDLE LEADER): Hypertension is controlled. Continue current regimen. Assessment & Plan (05/23/2022 5:57 AM NEEDLE LEADER): Hypertension is controlled. Continue current regimen.Reviewed normal [...] regimen. Assessment & Plan (07/17/2017 8:20 AM NEEDLE LEADER): Hypertension is controlled. Continue current regimen. Assessment [...] Yrs) PURPLE 11/16/2021,03/06/2021 Pneumococcal Polysaccharide PPV23 09/06/2019 Social History Tobacco Use Types Packs/Day Years [...] on file Legal Sex Female 11:32 PM NEEDLE LEADER Gender Identity Not on file Sexual Orientation Not on file Occupation Industry Job Start Date Job End Date retired Not on file Not on file Not on file Last Filed Vital Signs Vital Sign Reading [...] 01/09/2024 4:04 AM CDT Plan of Treatment Not on file Medical Devices Implanted Type Area Baseball Club Manager Device Identifier Shelf Expiration Date Model / Serial / Lot Dbs Bilateral: Brain Medtronic Neuro [id number] Activa Sc 2.4inx2.2in .4in 1 Channel Quadripolar Multiprogram - [id number] - [id number] Implanted:Qty: 1 on 11/14/2017 by Gui Montenegro MD at [facility] Left: Chest Medtronic Neuro 03/25/2019 [id number] / [id number] / Medtronic Neuro [id number] Activa Sc 2.4inx2.2in .4in 1 Channel Octapolar Multiprogram - [id number] - [id number] Implanted:Qty: 1 on 02/02/2019 by Gui Montenegro MD at [facility] Left: Chest Medtronic Inc 06/25/2020 39593 / [id number] / Davol Inc/C R Bard [id number] Bard Marlex 6x6in Monofilament Gold Standard Flat Sheet Groin - [id number] Implanted:Qty: 1 on 02/02/2019 by Gui Montenegro MD at [facility] Left: Chest Davol Inc/C R Bard 09/07/2023 [id number] / / [id number] Medtronic Neuro 3389s-40 Stimloc 40cm Spinal Cord .5mm Space Kit Neurostimulator Lead - [id number] Implanted:Qty: 1 on 02/02/2019 by Gui Montenegro MD at [facility] Medtronic Inc 12/01/2022 [id number]-40 / / [id number] BiomRentalutionsixation Inc Od2 Mm L[address] Maxillofacial Screw Bone Titanium - [id number] Implanted:Qty: 4 on 02/02/2019 by Gui Montenegro MD at [facility] Left: Cranial Morena Biomet Inc / / Biomet BO.LTixation Inc 4 Hole Straight Mandible Regular Plate Bone Titanium Sterile 2mm - [id number] Implanted:Qty: 2 on 02/02/2019 by Gui Montenegro MD at [facility] Left: Cranial Morena [employer] Inc / / Medtronic Neuro 59206-43 Dbs 3.8-1.3mm 1.5mm 60cm Quadripolar Distal Octapolar Proximal - [id number] - [id number] Implanted:Qty: 1 on 02/02/2019 by Gui Montenegro MD at [facility] Left: Head Medtronic Inc 12/24/2022 49316-01 / [id number] / Medtronic Inc Stimulator Activa 39165 - [id number] Implanted:Qty: 1 on 09/13/2022 by Gui Montenegro MD at [facility] Right: Chest Medtronic Inc 08/24/2023 [id number] / / Explanted Type Area Baseball Club Manager Device Identifier Shelf Expiration Date Model / Serial / Lot Medtronic Neuro 04327 Activa Sc 2.4inx2.2in .4in 1 Channel Octapolar Multiprogram - [id number] - [id number] Explanted:Qty: 1 on 02/02/2019 by Gui Montenegro MD at [facility] Medtronic Inc 53491 / [id number] / Biomet Microfixation Inc Od2 Mm L[address] Maxillofacial Screw Bone Titanium - [id number] Explanted:Qty: 4 on 02/02/2019 at [facility] Left: Cranial Morena [employer]omet Inc / / Biomet Microfixation Inc 4 Hole Straight Mandible Regular Plate Bone Titanium Sterile 2mm - [id number] Explanted:Qty: 2 on 02/02/2019 at [facility] Left: Cranial Morena [employer]omet Inc / / Medtronic Neuro 72013 Activa Sc 2.4inx2.2in .4in 1 Channel Quadripolar Multiprogram - [id number] - [id number] Implanted:Qty: 1 on 11/14/2017 by Gui Montenegro MD at [facility] Explanted:Qty: 1 on 09/13/2022 by Gui Montenegro MD at [facility] Right: Chest Medtronic Neuro 03/25/2019 32986 / [id number] / Procedures Procedure Name Priority Date/Time Associated Diagnosis Comments STOOL DNA COLOGUARD Routine 06/17/2022 7:00 PM NEEDLE LEADER Colon cancer screening from Last 3 Months or Most Recently Relevant to Health Maintenance Results * Stool DNA - Cologuard (06/17/2022 7:00 PM NEEDLE LEADER) Stool DNA - Cologuard Negative Negative [employer] (CLIA #:[id number]) Comment: NEGATIVE TEST RESULT. A negative Cologuard [...] (Adilson Fox al, N Engl J Med 2014;370(14):2826-0440) The normal value (reference range) for this assay is negative. COLOGUARD RE-SCREENING RECOMMENDATION: Periodic colorectal cancer screening is an important part of preventive healthcare for asymptomatic individuals at average risk for colorectal cancer. Following a negative Cologuard result, the [place] Cancer Society and U.S. Multi-Society Task Force screening guidelines recommend a Cologuard re-screening interval of 3 years. References: [place] [employer] Society Guideline for Colorectal Cancer Screening: https://www.cancer.org/cancer/tjjhz-nccrkd-jhxdki/elxwgpgxx-qfgiqlsge-wpwjglc/ac s-rec ommendations.html.; Sulaiman ZAMARRIPA, Stephanie GRECO, Arnel CunninghamK, Colorectal Cancer Screening: Recommendations for Physicians and Patients from the U.S. Multi-Society Task Force on Colorectal Cancer Screening , Am J Gastroenterology 2017; 112:4616-5270. TEST DESCRIPTION: Composite algorithmic analysis of stool [...] screened with both Cologuard and colonoscopy. (Adilson Leon, N Engl J Med 2014;370(14):1078-2182.) Cologuard may produce a false negative or false positive result (no colorectal cancer or precancerous polyp present at colonoscopy follow up). A negative Cologuard test result does not guarantee the absence of CRC or advanced adenoma (pre-cancer). The current Cologuard screening interval is every 3 years. ([place] Cancer Society and U.S. Multi-Society Task Force). Cologuard performance data in a 10,000 patient pivotal study using colonoscopy as the reference method can be accessed at the following location: www.Quoteroller/results. Additional description of the Cologuard test process, warnings and precautions can be found at www.cologuard.com. Stool 06/17/2022 7:00 PM NEEDLE LEADER 06/19/2022 12:08 PM NEEDLE LEADER Steve Peraza MD LAB BODY FLUIDS AND STOOLS OR DERABLES Final Result [employer] (CLIA #:[id number]) [address] [place] [address] from Last 3 Months or Most Recently Relevant to Health Maintenance Insurance [facility] MEDICARE ADVANTAGE [facility] MEDICARE ADVANTAGE [facility] MEDICARE ADVANTAGE Advance Directives For more information, please contact: [phone] Documents on File Type Date Recorded Patient Data Lead Expl anation ADVANCE DIRECTIVE 11/19/2021 2:53 PM [...] 11:20 AM 11/15/2017 7:12 PM Care Teams Prison Teacher Relationship Specialty Start Date End Date Steve Peraza MD [address] [place] [address] PCP - General 08/09/16
--- NOTE | 2024-08-20 20:45 | ED_ITS ---
HPI - General Adult General Chief complaint: Chest Pain Stated complaint: CP ALL DAY Time Seen by Provider: 08/20/24 20:16 History of Present Illness HPI narrative: Patient 74-year-old female who presents emergency department with chief complaint of chest pain. Patient has prior history of Parkinson's and reports that over the last several days she has been having discomfort in her chest. The facility where she is resident of decided to call EMS today and transported patient to the emergency department she received aspirin prior to arrival and reports that currently her chest pain is resolved Related Data Home Medications ?Medication ?Instructions ?Recorded ?Confirmed ?Last Taken ?Type acetaminophen 325 mg tablet 650 mg PO Q6H PRN discomfort 08/20/24 08/20/24 Unknown History atorvastatin 10 mg tablet 10 mg PO QPM PRN hyperlipedimia 08/20/24 08/20/24 Unknown History carbidopa 25 mg-levodopa 100 mg 1 tablet PO QID parkinsonism 08/20/24 08/20/24 Unknown History tablet hydroxyzine HCl 25 mg tablet 25 mg PO Q8H 08/20/24 08/20/24 Unknown History lisinopril 5 mg tablet 5 mg PO DAILY 08/20/24 08/20/24 Unknown History methocarbamol 500 mg tablet 500 mg PO Q8H muscle relaxer 08/20/24 08/20/24 Unknown History naproxen 500 mg tablet 500 mg PO Q12H 08/20/24 08/20/24 Unknown History sertraline 50 mg tablet 50 mg PO Q24H 08/20/24 08/20/24 Unknown History zonisamide 25 mg capsule 25 mg PO DAILY 08/20/24 08/20/24 Unknown History Allergies Allergy/AdvReac Type Severity Reaction Status Date / Time baclofen Allergy Severe Anaphylactic Verified 02/06/22 08:16 Shock egg Allergy Mild Anaphylactic Verified 02/06/22 08:16 Shock lidocaine Allergy Unknown Unknown Verified 08/20/24 20:32 Penicillins Allergy Unknown Rash Verified 02/06/22 08:16 propofol Allergy Unknown Anaphylactic Verified 02/06/22 08:16 Shock Review of Systems 2 Review of Systems: A 10 system review of systems was completed on the patient and is negative except for what is stated in the HPI. Nursing and ancillary documentation was reviewed. [facility] Past Medical History Medical History Hypertension Hyperlipidemia Parkinson disease Surgical History Surgical History History of cholecystectomy Social History Social History Smoking status: Never smoker Alcohol intake: never Substance use: never Exam 2 Narrative: GENERAL: Well-appearing, well-nourished, and in no acute distress. HEAD: Normocephalic, atraumatic. EYES: PERRLA and EOMI. ENT: Nares clear, no rhinorrhea or epistaxis. Mucous membranes moist. NECK: Supple. CHEST: Clear to auscultation. No respiratory distress. Stimulator is present in the anterior chest wall HEART: Regular rate and rhythm. No murmur heard. Normal peripheral pulses. ABDOMEN: Soft, nontender, nondistended, normal active bowel sounds. EXTREMITIES: Normal range of motion. No edema. SKIN: Warm, dry, no rash. NEURO: No focal deficits. Alert and oriented x3. Parkinsonian movements PSYCH: Normal mood and affect. Course Vital Signs Vital signs: Vital Signs Temperature 37.2 C 08/20/24 20:14 Pulse Rate 95 08/20/24 20:14 Respiratory Rate 20 08/20/24 20:14 Pulse Oximetry 96 08/20/24 20:14 Oxygen Delivery Room Air 08/20/24 20:14 Temperature 37.2 C 08/20/24 20:14 Pulse Rate 95 08/20/24 20:14 Respiratory Rate 20 08/20/24 20:14 Blood Pressure 114/68 08/20/24 20:24 Pulse Oximetry 96 08/20/24 20:14 Oxygen Delivery Room Air 08/20/24 20:14 Medical Decision Making [facility] Narrative Medical decision making narrative: Differential diagnosis includes ACS, atypical chest pain, electrolyte abnormality, Chest x-ray showed no focal infiltrate EKG was poor quality but showed no evidence of acute ST elevations. Initial troponin was -3 hour repeat troponin was negative as well BNP was 348 Plan will be discharge the patient back to the facility Vital Signs Vital Signs: Vital Signs Temperature 37.2 C 08/20/24 20:14 Pulse Rate 95 08/20/24 20:14 Respiratory Rate 20 08/20/24 20:14 Pulse Oximetry 96 08/20/24 20:14 Oxygen Delivery Room Air 08/20/24 20:14 Temperature 37.2 C 08/20/24 20:14 Pulse Rate 95 08/20/24 20:14 Respiratory Rate 20 08/20/24 20:14 Blood Pressure 114/68 08/20/24 20:24 Pulse Oximetry 96 08/20/24 20:14 Oxygen Delivery Room Air 08/20/24 20:14 Lab Data 08/20/24 20:50 08/20/24 20:50 Labs: Lab Results 08/20/24 08/20/24 Range/Units 20:50 23:41 WBC 7.9 (4.5-10.0) K/mm3 RBC 3.20 L (4.2-5.4) M/mm3 Hgb 9.7 L D (12.0-15.0) g/dL Hct 30.7 L (37.0-47.0) % MCV 95.9 (80-100) fl MCH 30.3 (26-34) pg MCHC 31.6 L (32-36) g/dl RDW 14.2 (11.5-14.5) % Plt Count 180 (150-375) k/mm3 MPV 9.4 (7.4-10.4) fl Immature Gran % (Auto) 0.3 (0-0.5) % Neut % (Auto) 63.5 (45.5-73.1) % Lymph % (Auto) 21.9 (18.3-44.2) % [place] % (Auto) 9.0 H (2.6-8.5) % Eos % (Auto) 4.5 H (0-4.4) % Baso % (Auto) 0.8 (0.2-1.2) % Lymph # (Auto) 1.74 (0.9-3.2) K/mm3 [place] # (Auto) 0.7 H (0.1-0.6) K/mm3 Eos # (Auto) 0.4 H (0-0.3) K/mm3 Baso # (Auto) 0.1 (0.0-0.1) K/mm3 Abs Immat Gran (auto) 0.02 (0.00-0.031) K/mm3 Absolute Neuts (auto) 5.0 (1.3-6.7) K/mm3 Absolute Nucleated RBC 0.000 (0.0-0.012) K/mm3 Nucleated RBC % 0.0 (0.0-0.2) % PT 14.9 H (11.1-14.7) Seconds INR 1.1 APTT 30.6 (22.3-36.8) Seconds Sodium 138 (137-145) mmol/L Potassium 4.3 (3.4-5.0) mmol/L Chloride 106 (98-107) mmol/L Carbon Dioxide 28 (22-30) mmol/L Anion Gap 4 (4-12) mmol/L BUN 35 H D (7-17) mg/dL Creatinine 0.72 (0.7-1.0) mg/dL Estim Creat Clear Calc 51 ml/min Estimated GFR > 60 (59 - ) Glucose 85 (65-110) mg/dL Calcium 8.6 (8.4-10.2) mg/dL Total Bilirubin 0.4 (0.2-1.3) mg/dL AST 22 (14-36) U/L ALT 7 (6-35) U/L Alkaline Phosphatase 118 (38-126) U/L Troponin I < 0.012 < 0.012 (0.000-0.034) ng/mL NT-Pro-B Natriuret Pep 348 H (19.9-100) pg/mL Total Protein 6.0 L (6.3-8.2) g/dL Albumin 3.2 L (3.5-5.1) g/dL Lipase 231 (23-300) U/L Discharge Plan Discharge Clinical Impression: Atypical chest pain Patient Disposition: NH Fdc/Asst Living Condition: Stable Instructions: Antibiotic Form, Chest Pain (ED) Patient Language: Kittitian Prescriptions: No Action levofloxacin 750 mg tablet 750 mg PO DAILY 7 Days Qty: 7 0RF methocarbamol 500 mg tablet 500 mg PO Q8H acetaminophen 325 mg tablet 650 mg PO Q6H PRN (Reason: discomfort ) atorvastatin 10 mg tablet 10 mg PO QPM PRN (Reason: hyperlipedimia ) hydroxyzine HCl 25 mg tablet 25 mg PO Q8H lisinopril 5 mg tablet 5 mg PO DAILY carbidopa-levodopa 25-100 mg tablet 1 tablet PO QID sertraline 50 mg tablet 50 mg PO Q24H naproxen 500 mg tablet 500 mg PO Q12H zonisamide 25 mg capsule 25 mg PO DAILY Follow-up/Referrals: Karmen,Steve Rhodes MD [Primary Care Provider] - Time of Disposition: 01:40
[2024-08-20] MEDS: MORPHINE SULFATE (*CRX) 2 MG/ML INJ IV PUSH (21:18)
[2024-08-20 21:20] LABS: Basophils Absolute Auto 0.1 K/mm3 (0.0-0.1); Basophils Percent Auto 0.8 % (0.2-1.2); Eosinophils Absolute Auto 0.4 K/mm3 (0-0.3); Eosinophils Percent Auto 4.5 % (0-4.4); Hematocrit 30.7 % (37.0-47.0); Hemoglobin 9.7 g/dL (12.0-15.0); Immature Granulocyte Absolute 0.02 K/mm3 (0.00-0.031); Immature Granulocyte Percent A 0.3 % (0-0.5); Lymphocytes Absolute Auto 1.74 K/mm3 (0.9-3.2); Lymphocytes Percent Auto 21.9 % (18.3-44.2); Mean Corpuscular HGB Conc 31.6 g/dl (32-36); Mean Corpuscular Hemoglobin 30.3 pg (26-34); Mean Corpuscular Volume 95.9 fl (80-100); Mean Platelet Volume 9.4 fl (7.4-10.4); Monocytes Absolute Auto 0.7 K/mm3 (0.1-0.6); Neutrophils Percent Auto 63.5 % (45.5-73.1); Platelet Count Result 180 k/mm3 (150-375); Red Cell Distribution Width 14.2 % (11.5-14.5); White Blood Count 7.9 K/mm3 (4.5-10.0)
[2024-08-20 21:30] LABS: INR 1.1; Prothrombin Time 14.9 Seconds (11.1-14.7)
[2024-08-20 21:31] LABS: Alanine Aminotransferase 7 U/L (6-35); Albumin Level 3.2 g/dL (3.5-5.1); Alkaline Phosphatase 118 U/L (38-126); Anion Gap 4 mmol/L (4-12); Aspartate Amino Transferase 22 U/L (14-36); Bilirubin,Total 0.4 mg/dL (0.2-1.3); Blood Urea Nitrogen 35 mg/dL (7-17); Calcium 8.6 mg/dL (8.4-10.2); Carbon Dioxide 28 mmol/L (22-30); Chloride 106 mmol/L (98-107); Estimated CRCL calculation 51 ml/min; Estimated Glomerular Filt Rate > 60; Glucose 85 mg/dL (65-110); Lipase 231 U/L (23-300); Partial Thromboplastin Time 30.6 Seconds (22.3-36.8); Potassium 4.3 mmol/L (3.4-5.0); Sodium 138 mmol/L (137-145)
[2024-08-20 21:42] LABS: NT Pro B Type Natriuretic Pept 348 pg/mL (19.9-100); Troponin I < 0.012 ng/mL (0.000-0.034)
[2024-08-20 22:30] VITALS: BP 131/76; PULSE 79; RESP 19; O2SAT 96
[2024-08-20 23:45] VITALS: BP 142/79; PULSE 71; RESP 19; O2SAT 95
[2024-08-21 01:00] VITALS: BP 153/81; PULSE 78; RESP 20; TEMP 37.1; O2SAT 96
[2024-08-21 01:11] LABS: Troponin I < 0.012 ng/mL (0.000-0.034)
--- NOTE | 2024-08-21 02:31 | ECG_ITS ---
Test Date: 2024-08-21 02:31:04 Measurements Intervals [place] Rate: 66 P: 7 NH: 148 QRS: -29 QRSD: 109 T: 2 QT: 415 QTc: 437 Interpretive Statements SINUS RHYTHM POSSIBLE ANTERIOR MYOCARDIAL INFARCTION , PROBABLY OLD BASELINE ARTIFACT- I, II, III, AVR, AVL, AVF, V1-V6 ABNORMAL ECG Compared to ECG 08/20/2024 20:26:30 HEART RATE HAS DECREASED Electronically Signed On 08-21-2024 07:16:25 CDT by Alonso Bonilla D.O.
[2024-08-21 02:54] LABS: Troponin I < 0.012 ng/mL (0.000-0.034)
== END 2024-08-21 06:50 ==
PROVIDERS: Emergency Provider Emergency Medicine; PCP Internal Medicine
DX: R07.89 Other chest pain (principal); G20.A1 Parkinson's disease without dyskinesia, without mention of fluctuations; I10 Essential (primary) hypertension; E78.5 Hyperlipidemia, unspecified; Z90.49 Acquired absence of other specified parts of digestive tract; Z79.899 Other long term (current) drug therapy; I45.9 Conduction disorder, unspecified; R94.31 Abnormal electrocardiogram [ECG] [EKG]
CPT/HCPCS: 36415; 71045; 80053; 83690; 83880; 84484; 85025; 85610; 85730; 93005; 96374; 99284; J2270

== ENCOUNTER 2024-08-25 17:46 | Emergency (ER) | payer MEDICARE, MEDICAID, SELFPAY ==
[2024-08-25] VITALS (25 sets, daily range): BP systolic 139–170; BP diastolic 77–95; PULSE 57–76; RESP 18–24; TEMP 36.6–36.8; O2SAT 96–98
--- NOTE | ~2024-08-25 | CT_ITS ---
CT brain wo con Ordering provider: Edna Carreon PA-C History: 74 years Female with . fall, hi . Comparison: None. Technique: CT of the head without contrast. Radiation reduction technique utilized. The dose-length p roduct was 681 mGy-cm. FINDINGS: BRAIN PARENCHYMA AND CSF SPACES: : Mild leukoaraiosis and diffuse cortical atrophy. Mild atheromatous disease. Bilateral DBS is seen with the tip in the brainstem area. No midline shift, mass effect or hemorrhage. The brain parenchyma and CSF spaces are otherwise normal. VISUALIZED PARANASAL SINUSES: Well aerated. MASTOIDS: Left mastoidectomy. BONES: The bones appear intact. SOFT TISSUES: Visualized nasopharynx is normal. Subgaleal hematoma is seen in the left parietal scal p Superficial soft tissues are normal. IMPRESSION: No acute intracranial findings. Reviewed, dictated and finalized at location A.
--- NOTE | ~2024-08-25 | XR_ITS ---
XR shoulder RT min 2V Ordering provider: Edna Carreon PA-C History: . fall, R shoulder pain . Comparison: None. FINDINGS: BONES: No acute fracture or dislocation. JOINT SPACES: The acromioclavicular joint is normal. The glenohumeral joint shows osteoarthritic tavera ges. SOFT TISSUES: Normal. IMPRESSION: No acute osseous abnormality right shoulder. Reviewed, dictated and finalized at location A.
--- NOTE | ~2024-08-25 | CT_ITS ---
CT cervical spine wo con Ordering provider: Edna Carreon PA-C History: . fall, hi . Comparison: None. Technique: CT of the cervical spine was performed without contrast. Sagittal and coronal reformatted images were also obtained and reviewed. Automated exposure control and iterative reconstruction petar hnique were employed. The dose-length product was 138.28 mGy-cm. FINDINGS: VERTEBRAE: No subluxation or acute fracture. The occipital condyles are intact. Degenerative changes of the spine. Multilevel facet joint disease. Multilevel uncovertebral joint osteoarthritic changes. DISC SPACES: Narrowing of the disc C5-C6 and C6-C7. Bilateral narrowing of the foramina at the level of C3-C4. Narrowing of the left foramina at the leve l of C4-C5. Bilateral narrowing of the foramina at the level of C5-C6 and C6-C7. PARASPINOUS SOFT TISSUES: Normal. Left lung dependent atelectasis. IMPRESSION: No acute osseous abnormality cervical spine. Multilevel degenerative disc disease. Reviewed, dictated and finalized at location A.
--- OUTSIDE RECORDS SUMMARY | 2024-08-25 18:46 | XMS_ITS | Clinical Summary ---
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 Anderson presented in the med on state for further programming. She is s/p bilateral STN DBS (08/10/2013) and revision of the right connector wire in 2013, replacement of left DBS system after lead fracture on 02/02/19 for further programming. She had a fall and hit her head on the table. She was provided with an ice pack from staff at the [facility]. She did not need to seek medical [...] visit. She felt stronger. She was attending [employer] twice a week. Her DBS was interrogated [...] zonisamide Assessment & Plan (03/26/2022 11:22 AM PLAN REP): Ms. Anderson presented in the med on [...] overall when she she laughed about the first front ventilator giving a wheelchair when she did not [...] her stimulation today. She had her patient tool programmer and was shown how to check the battery level and change settings if needed. She was also provided with printed instructions. Recommendations: 1. Keep DBS on at all times 2. Same levodopa 3. Continue PT/ST 4. Fall precaution 5. Follow up in 6 months and sooner if needed Assessment & Plan (04/11/2021 12:28 PM PLAN REP): Ms. Anderson presented in the med ON [...] 3V). Assessment & Plan (06/18/2019 2:21 PM PLAN REP): Ms. Anderson had near tremor resolution for [...] 3V). Assessment & Plan (05/24/2019 12:41 PM PLAN REP): Ms. Anderson had less right hand tremor [...] orders Assessment & Plan (04/05/2019 3:10 PM PLAN REP): Ms. Anderson had improvement since her left [...] 25/day Carbidopa-Levodopa 25-100 QID Health Insurance Coverage: [facility] Medicare Prescription Coverage: yes Pharmacy: [facility], [place] - [address] [facility] [id number] [facility] - [place], [place] - [address], [address], [address] [facility] [address] Primary Care Provider: Steve Peraza MD Assessment [...] needed. Assessment & Plan (07/17/2017 1:57 PM PLAN REP): Symptoms are improved. Reviewed core strengthening. Reviewed ROM exercises. Assessment & Plan (01/17/2017 11:29 AM CDT): Continue gabapentin and diazepam. Follow with neurology.Reviewed core strengthening. Reviewed ROM exercises.Start hydrocodone. 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 Continue alprazolam. Assessment & Plan (05/23/2022 5:57 AM PLAN REP): Reviewed stress reduction techniques.Symptoms are controlled off [...] visit Assessment & Plan (05/08/2023 5:40 AM PLAN REP): Continue Sinemet. Continue Neurology care. Assessment & Plan (07/08/2022 4:07 PM PLAN REP): She had stage 3 parkinsonism characterized by [...] ST. Assessment & Plan (05/23/2022 5:56 AM PLAN REP): Continue Sinemet. Continue Neurology care. Assessment & Plan (11/30/2021 7:17 AM CDT): Continue Sinemet. Continue Neurology care. Assessment & Plan (06/25/2021 12:21 PM PLAN REP): Ms. Anderson presented for a follow up via telemedicine. She was doing better than when she was here last in [facility]. She did not have falls and her [...] September Assessment & Plan (04/11/2021 11:44 AM PLAN REP): She had stage 3 parkinsonism characterized by [...] reevaluated via telemedicine by one of our Gypsum Block Setter to determine if mood and tremor are [...] care. Assessment & Plan (07/17/2017 8:21 AM PLAN REP): Continue Sinemet and neurology care. Assessment & Plan (01/17/2017 7:41 AM CDT): Continue neurology care and Sinemet. Hypertension 04/02/2013 Assessment & Plan (05/08/2023 5:40 AM PLAN REP): Hypertension is controlled. Continue current regimen. Assessment & Plan (05/23/2022 5:57 AM PLAN REP): Hypertension is controlled. Continue current regimen.Reviewed normal [...] regimen. Assessment & Plan (07/17/2017 8:20 AM PLAN REP): Hypertension is controlled. Continue current regimen. Assessment & Plan (01/17/2017 7:41 AM CDT): Hypertension is controlled. Continue current regimen. Removed low sodium diet. 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 Acute respiratory failure re quiring reintubation ([facility]) 11/14/2017 Family History Medical History Relation Name Comments Hypertension Brother 1 Family history of hypertension - (Added by TW Conv) Stroke Brother 2 Family history of cerebrovascular accident (CVA) - (Added by TW Conv) Alzheimer's disease Father Alzheime r's Disease; [...] of hypertension - Relation: Grandparent (Added by TW Conv) Cancer Other 6 Family history of cancer - Relation: Grandparent (Added by TW Conv) Diabetes Other 7 Family history of diabetes mellitus - Relation: Grandparent (Added by TW Conv) Heart attack Paternal Grandfather Anesthesia problems [...] on file Legal Sex Female 11:32 PM PLAN REP Gender Identity Not on file Sexual Orientation [...] 03/06/2021, 07/10/2020, Additional history exists Influenza Vaccine (Season Ended) 2025 Fall Risk Assessment 01/14/2025 01/15/2024, 08/22/2022, 01/09/2021, Additional history exists Colon Cancer Screening-DNA Stool Discontinued 06/17/19 Colon Cancer Screening-FIT Discontinued 06/17/2022 Medical Devices Implanted Type Area Sludge Filtration Operator Device Identifier Shelf Expiration Date Model / Serial / Lot Dbs Bilateral: Brain Medtronic Neuro [id number] Activa Sc 2.4inx2.2in .4in 1 Channel Quadripolar Multiprogram - [id number] - [id number] Implanted:Qty: 1 on 11/14/2017 by Gui Montenegro MD at [facility] Left: Chest Medtronic Neuro 03/25/2019 [id number] / [id number] / Medtronic Neuro [id number] Activa Sc 2.4inx2.2in .4in 1 Channel Octapolar Multiprogram - [id number] - [id number] Implanted:Qty: 1 on 02/02/2019 by Gui Montenegro MD at [facility] Left: Chest Medtronic Inc 06/25/2020 [id number] / [id number] / Davol Inc/C R Bard [id number] Bard Marlex 6x6in Monofilament Gold Standard Flat Sheet Groin - [id number] Implanted:Qty: 1 on 02/02/2019 by Gui Montenegro MD at [facility] Left: Chest Davol Inc/C R Bard 09/07/2023 [id number] / / [id number] Medtronic Neuro 3389s-40 Stimloc 40cm Spinal Cord .5mm Space Kit Neurostimulator Lead - [id number] Implanted:Qty: 1 on 02/02/2019 by Gui Montenegro MD at [facility] Medtronic Inc 12/01/2022 3389S-40 / / [id number] Biomet FabAlleyixation Inc Od2 Mm L[address] Maxillofacial Screw Bone Titanium - [id number] Implanted:Qty: 4 on 02/02/2019 by Gui Montenegro MD at [facility] Left: Cranial Morean Biomet Inc / / Biomet FabAlleyixation Inc 4 Hole Straight Mandible Regular Plate Bone Titanium Sterile 2mm - [id number] Implanted:Qty: 2 on 02/02/2019 by Gui Montenegro MD at [facility] Left: Cranial Morena Biomet Inc / / Medtronic Neuro 26488-35 Dbs 3.8-1.3mm 1.5mm 60cm Quadripolar Distal Octapolar Proximal - [id number] - [id number] Implanted:Qty: 1 on 02/02/2019 by Gui Montenegro MD at [facility] Left: Head Medtronic Inc 12/24/2022 [id number] / [id number] / Medtronic Inc Stimulator Activa 26870 - [id number] Implanted:Qty: 1 on 09/13/2022 by Gui Montenegro MD at [facility] Right: Chest Medtronic Inc 08/24/2023 48421 / / Explanted Type Area Sludge Filtration Operator Device Identifier Shelf Expiration Date Model / Serial / Lot Medtronic Neuro 34958 Activa Sc 2.4inx2.2in .4in 1 Channel Octapolar Multiprogram - [id number] - [id number] Explanted:Qty: 1 on 02/02/2019 by Gui Montenegro MD at [facility] Medtronic Inc 03821 / [id number] / Biomet FabAlleyixation Inc Od2 Mm L[address] Maxillofacial Screw Bone Titanium - [id number] Explanted:Qty: 4 on 02/02/2019 at [facility] Left: Cranial Morena Biomet Inc / / Biomet Microfixation Inc 4 Hole Straight Mandible Regular Plate Bone Titanium Sterile 2mm - [id number] Explanted:Qty: 2 on 02/02/2019 at [facility] Left: Cranial Morena Biomet Inc / / Medtronic Neuro 92317 Activa Sc 2.4inx2.2in .4in 1 Channel Quadripolar Multiprogram - [id number] - [id number] Implanted:Qty: 1 on 11/14/2017 by Gui Montenegro MD at [facility] Explanted:Qty: 1 on 09/13/2022 by Gui Montenegro MD at [facility] Right: Chest Medtronic Neuro 03/25/2019 03224 / [id number] / Procedures Procedure Name Priority Date/Time Associated Diagnosis Comments SCAN - RADIOLOGY/IMAGING 08/21/2024 9:11 AM CDT STOOL DNA COLOGUARD Routine 06/17/2022 7:00 PM PLAN REP Colon cancer screening from Last 3 Months or Most Recently Relevant to Health Maintenance Results * SCAN - RADIOLOGY/IMAGING (08/21/2024 9:11 AM CDT) Anatomical Region Laterality Modality Other us Provider Scanning Final Result * Stool DNA - Cologuard (06/17/2022 7:00 PM PLAN REP) Stool DNA - Cologuard Negative Negative [facility] (CLIA #:[id number]) Comment: NEGATIVE TEST RESULT. A negative Cologuard [...] screened with both Cologuard and colonoscopy. (Adilson T. et al, N Engl J Med 2014;370(14):0185-7677) The normal value (reference range) for this [...] Cancer Society Guideline for Colorectal Cancer Screening: https://www.cancer.org/cancer/hnexi-axmdxs-vrsvxh/kwxmthfju-vxrxogsqa-eroevpd/ac s-rec ommendations.html.; Sulaiman ZAMARRIPA, Stephanie GRECO, Arnel CHACON, Colorectal Cancer Screening: Recommendations for Physicians and Patients from the U.S. Multi-Society Task Force on Colorectal Cancer Screening , Am J Gastroenterology 2017; 112:2593-6084. TEST DESCRIPTION: Composite algorithmic analysis of stool [...] Abarca. et al, N Engl J Med 2014;370(14):7326-8890.) Cologuard may produce a false negative or [...] can be accessed at the following location: [email or web address] Innovations/results. Additional description of the Cologuard test process, warnings and precautions can be found at [email or web address]. Stool 06/17/2022 7:00 PM PLAN REP 06/19/2022 12:08 PM PLAN REP Steve Peraza MD LAB BODY FLUIDS AND STOOLS OR DERABLES Final Result [facility] (CLIA #:[id number]) [address] [address] from Last 3 Months or Most Recently Relevant to Health Maintenance Insurance [facility] MEDICARE ADVANTAGE Advance Directives For more information, please contact: [phone] Documents on File Type Date Recorded Patient Office Lead Expl anation ADVANCE DIRECTIVE 11/19/2021 2:53 [...] 11:20 AM 11/15/2017 7:12 PM Care Teams Tire Manager Relationship Specialty Start Date End Date Steve Peraza MD [address] [address] PCP - General 08/09/16
--- OUTSIDE RECORDS SUMMARY | 2024-08-25 18:46 | XMS_ITS | Referral Summary ---
Author Organization [facility] Address [address] [place] [address] Care Team Providers Care Complaint Supervisor Name Role Phone Steve Peraza MD Primary Care Provider [phone] Encounters Date Type Department Care Team Description 08/21/2024 Orders Only [facility] Health Information Management [address] [place] [address] Scanning, Provider from Last 3 Months Allergies Active Allergy Reactions Criticality Noted Date [...] mouth nightly 1 tab qhs 30 tablet 11 4 09/30/19 25 Active carbidopa-levod opa (SINEMET) 25-100 mg per tablet Take 1 tablet by mouth 3 (three) times a day TAKE one tablet by mouth three times daily (10 AM - 2 PM - 6 PM). 120 tablet 11 4 Active ALPRAZolam (XANAX) 0.25 mg tablet [...] Multimodal pain control - follow up eval [facility] clinic scheduled 01/30/24 with repeat cxr. Parkinson disease 01/09/2024 Assessment & Plan (01/12/2024 12:16 PM CDT): -Caridoba-Levodopa 25-100 TID - Akathisia and tardive dyskinesia present at baseline Anxiety 01/09/2024 Assessment & Plan (01/10/2024 11:44 AM CDT): -Holding Home Ativan Constipation 01/09/2024 Assessment & Plan (01/14/2024 12:34 PM CDT): -Last BM 6 days [employer] High stool burden on imaging - Diet: [...] 11/03/23 Assessment & Plan (04/16/2023 2:16 PM SALESFORCE SPECIALIST): Ms. Anderson presented in the med on state for further programming. She is s/p bilateral STN DBS (08/10/2013) and revision of the right connector wire in 2013, replacement of left DBS system after lead fracture on 02/02/19 for further programming. She had a fall and hit her head on the table. She was provided with an [facility] pack from staff at the [facility]. She did not need to seek medical [...] visit. She felt stronger. She was attending [facility] twice a week. Her DBS was interrogated [...] her program like she normally does at [facility]. She also had more leg weak where [...] zonisamide Assessment & Plan (03/26/2022 11:22 AM SALESFORCE SPECIALIST): Ms. Anderson presented in the med on [...] when she she laughed about the front elevator operator giving a wheelchair when she did not [...] her stimulation today. She had her patient senior statistical programmer and was shown how to check the battery level and change settings if needed. She was also provided with printed instructions. Recommendations: 1. Keep DBS on at all times 2. Same levodopa 3. Continue PT/ST 4. Fall precaution 5. Follow up in 6 months and sooner if needed Assessment & Plan (04/11/2021 12:28 PM SALESFORCE SPECIALIST): Ms. Anderson presented in the med ON [...] orders and plan to start after the holidays Assessment & Plan (02/06/2021 12:04 PM CDT): [...] 3V). Assessment & Plan (06/18/2019 2:21 PM SALESFORCE SPECIALIST): Ms. Anderson had near tremor resolution for [...] 3V). Assessment & Plan (05/24/2019 12:41 PM SALESFORCE SPECIALIST): Ms. Anderson had less right hand tremor [...] orders Assessment & Plan (04/05/2019 3:10 PM SALESFORCE SPECIALIST): Ms. Anderson had improvement since her left [...] 25/day Carbidopa-Levodopa 25-100 QID Health Insurance Coverage: [facility] Medicare Prescription Coverage: yes Pharmacy: [facility] [address] [address] [facility] [address] [facility] - [place], [place] - [address], [address], [address] [facility] [address] Primary Care Provider: Steve Peraza MD Assessment [...] needed. Assessment & Plan (07/17/2017 1:57 PM SALESFORCE SPECIALIST): Symptoms are improved. Reviewed core strengthening. Reviewed ROM exercises. Assessment & Plan (01/17/2017 11:29 AM CDT): Continue gabapentin and diazepam. Follow with neurology.Reviewed core strengthening. Reviewed ROM exercises.Start hydrocodone. 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 Continue alprazolam. Assessment & Plan (05/23/2022 5:57 AM SALESFORCE SPECIALIST): Reviewed stress reduction techniques.Symptoms are controlled off [...] visit Assessment & Plan (05/08/2023 5:40 AM SALESFORCE SPECIALIST): Continue Sinemet. Continue Neurology care. Assessment & Plan (07/08/2022 4:07 PM SALESFORCE SPECIALIST): She had stage 3 parkinsonism characterized by [...] ST. Assessment & Plan (05/23/2022 5:56 AM SALESFORCE SPECIALIST): Continue Sinemet. Continue Neurology care. Assessment & Plan (11/30/2021 7:17 AM CDT): Continue Sinemet. Continue Neurology care. Assessment & Plan (06/25/2021 12:21 PM SALESFORCE SPECIALIST): Ms. Anderson presented for a follow up via telemedicine. She was doing better than when she was here last in [facility]. She did not have falls and her [...] September Assessment & Plan (04/11/2021 11:44 AM SALESFORCE SPECIALIST): She had stage 3 parkinsonism characterized by [...] reevaluated via telemedicine by one of our Glazing Department Supervisor to determine if mood and tremor are [...] STN DBS in 2013 with reoperation in 2018. She was doing very well with DBS [...] care. Assessment & Plan (07/17/2017 8:21 AM SALESFORCE SPECIALIST): Continue Sinemet and neurology care. Assessment & Plan (01/17/2017 7:41 AM CDT): Continue neurology care and Sinemet. Hypertension 04/02/2013 Assessment & Plan (05/08/2023 5:40 AM SALESFORCE SPECIALIST): Hypertension is controlled. Continue current regimen. Assessment & Plan (05/23/2022 5:57 AM SALESFORCE SPECIALIST): Hypertension is controlled. Continue current regimen.Reviewed normal [...] regimen. Assessment & Plan (07/17/2017 8:20 AM SALESFORCE SPECIALIST): Hypertension is controlled. Continue current regimen. Assessment [...] on file Legal Sex Female 11:32 PM SALESFORCE SPECIALIST Gender Identity Not on file Sexual Orientation [...] on file Medical Devices Implanted Type Area Picker/Puller Device Identifier Shelf Expiration Date Model / Serial / Lot Dbs Bilateral: Brain Medtronic Neuro 24686 Activa Sc 2.4inx2.2in .4in 1 Channel Quadripolar Multiprogram - [id number] - [id number] Implanted:Qty: 1 on 11/14/2017 by Gui Montenegro MD at [facility] Left: Chest Medtronic Neuro 03/25/2019 [id number] / [id number] / Medtronic Neuro 33097 Activa Sc 2.4inx2.2in .4in 1 Channel Octapolar Multiprogram - [id number] - [id number] Implanted:Qty: 1 on 02/02/2019 by Gui Montenegro MD at [facility] Left: Chest Medtronic Inc 06/25/2020 39292 / [id number] / Davol Inc/C R Bard [id number] Bard Marlex 6x6in Monofilament Gold Standard Flat Sheet Groin - [id number] Implanted:Qty: 1 on 02/02/2019 by Gui Montenegro MD at [facility] Left: Chest Davol Inc/C R Bard 09/07/2023 [id number] / / [id number] Medtronic Neuro 3389s-40 Stimloc 40cm Spinal Cord .5mm Space Kit Neurostimulator Lead - [id number] Implanted:Qty: 1 on 02/02/2019 by Gui Montenegro MD at [facility] Medtronic Inc 12/01/2022 3389S-40 / / [id number] Biomet [employer] Farm[employer] Inc Od2 Mm L[address] Maxillofacial Screw Bone Titanium - [id number] Implanted:Qty: 4 on 02/02/2019 by Gui Montenegro MD at [facility] Left: Cranial Morena Biomet Inc / / Biomet Microfixation Inc 4 Hole Straight Mandible Regular Plate Bone Titanium Sterile 2mm - [id number] Implanted:Qty: 2 on 02/02/2019 by Gui Montenegro MD at [facility] Left: Cranial Morena Biomet Inc / / Medtronic Neuro 80770-07 Dbs 3.8-1.3mm 1.5mm 60cm Quadripolar Distal Octapolar Proximal - [id number] - [id number] Implanted:Qty: 1 on 02/02/2019 by Gui Montenegro MD at [facility] Left: Head Medtronic Inc 12/24/2022 86754-01 / [id number] / Medtronic Inc Stimulator Activa [id number] - [id number] Implanted:Qty: 1 on 09/13/2022 by Gui Montenegro MD at [facility] Right: Chest Medtronic Inc 08/24/2023 23578 / / Explanted Type Area Picker/Puller Device Identifier Shelf Expiration Date Model / Serial / Lot Medtronic Neuro 14563 Activa Sc 2.4inx2.2in .4in 1 Channel Octapolar Multiprogram - [id number] - [id number] Explanted:Qty: 1 on 02/02/2019 by Gui Montenegro MD at [facility] Medtronic Inc 77741 / [id number] / Biomet Microfixation Inc Od2 Mm L[address] Maxillofacial Screw Bone Titanium - [id number] Explanted:Qty: 4 on 02/02/2019 at [facility] Left: Cranial Morena Biomet Inc / / Biomet Microfixation Inc 4 Hole Straight Mandible Regular Plate Bone Titanium Sterile 2mm - [id number] Explanted:Qty: 2 on 02/02/2019 at [facility] Left: Cranial Morena Biomet Inc / / Medtronic Neuro 92451 Activa Sc 2.4inx2.2in .4in 1 Channel Quadripolar Multiprogram - [id number] - [id number] Implanted:Qty: 1 on 11/14/2017 by Gui Montenegro MD at [facility] Explanted:Qty: 1 on 09/13/2022 by Gui Montenegro MD at [facility] Right: Chest Medtronic Neuro 03/25/2019 00411 / [id number] / Procedures Procedure Name Priority Date/Time Associated Diagnosis Comments SCAN - RADIOLOGY/IMAGING 08/21/2024 9:11 AM CDT STOOL DNA COLOGUARD Routine 06/17/2022 7:00 PM SALESFORCE SPECIALIST Colon cancer screening from Last 3 Months or Most Recently Relevant to Health Maintenance Results * SCAN - RADIOLOGY/IMAGING (08/21/2024 9:11 AM CDT) Anatomical Region Laterality Modality Other us Provider Scanning Final Result * Stool DNA - Cologuard (06/17/2022 7:00 PM SALESFORCE SPECIALIST) Pathologist [facility] Stool DNA - Cologuard Negative Negative [facility] (CLIA #:[id number]) Comment: NEGATIVE TEST RESULT. A negative Cologuard [...] (Adilson Fox al, N Engl J Med 2014;370(14):6948-7813) The normal value (reference range) for this assay is negative. COLOGUARD RE-SCREENING RECOMMENDATION: Periodic colorectal cancer screening is an important part of preventive healthcare for asymptomatic individuals at average risk for colorectal cancer. Following a negative Cologuard result, the [place] Cancer Society and U.S. Multi-Society Task Force screening guidelines recommend a Cologuard re-screening interval of 3 years. References: [place] Cancer Society Guideline for Colorectal Cancer Screening: https://www.cancer.org/cancer/msziv-mjqffl-ugmjao/ksepbbdkv-mflmjsqer-lgjhozi/ac s-rec ommendations.html.; Sulaiman ZAMARRIPA, Stephanie GRECO, Arnel CunninghamK, Colorectal Cancer Screening: Recommendations for Physicians and Patients from the U.S. Multi-Society Task Force on Colorectal Cancer Screening , Am J Gastroenterology 2017; 112:9848-9352. TEST DESCRIPTION: Composite algorithmic analysis of stool [...] screened with both Cologuard and colonoscopy. (Adilson Ramos et al, N Engl J Med 2014;370(14):3744-5570.) Cologuard may produce a false negative or false positive result (no colorectal cancer or precancerous polyp present at colonoscopy follow up). A negative Cologuard test result does not guarantee the absence of CRC or advanced adenoma (pre-cancer). The current Cologuard screening interval is every 3 years. ([place] Cancer Society and U.S. Multi-Society Task Force). Cologuard performance data in a 10,000 patient pivotal study using colonoscopy as the reference method can be accessed at the following location: www.[employer]akes/results. Additional description of the Cologuard test process, warnings and precautions can be found at [email or web address] Systemsoguard.[email or web address]. Stool 06/17/2022 7:00 PM SALESFORCE SPECIALIST 06/19/2022 12:08 PM SALESFORCE SPECIALIST Steve Peraza MD LAB BODY FLUIDS AND STOOLS OR DERABLES Final Result [facility] (CLIA #:[id number]) [address] [place] [address] from Last 3 Months or Most Recently Relevant to Health Maintenance Insurance [facility] MEDICARE [facility] Address: [address] [address] [place] [address] [facility] MEDICARE ADVANTAGE [facility] MEDICARE ADVANTAGE Advance Directives For more information, please contact: [phone] Documents on File Type Date Recorded Patient Childcare Director Expl anation ADVANCE DIRECTIVE 11/19/2021 2:53 PM [...] 11:20 AM 11/15/2017 7:12 PM Care Teams Complaint Supervisor Relationship Specialty Start Date End Date Steve Peraza MD [address] [facility] [address], [place] [address] PCP - General 08/09/16
--- OUTSIDE RECORDS SUMMARY | 2024-08-25 18:46 | XMS_ITS | Encounter Summary ---
Author Organization [facility] Healthcare Address [address] [place] [address] Care Team Providers Care Neurology Physician Name Role Phone Steve Peraza MD Primary Care Provider [phone] Encounter Details Date Type Department Care Team (Late st Contact Info) Description 08/21/2024 Orders Only [facility] Health Information Management [address] [place] [id number] Scanning, Provider Social History Tobacco Use Types Packs/Day Years Used Date Smoking Tobacco: Never Passive Smoke Exposure: Never Smokeless Tobacco: Never Alcohol Use Standard Drinks/Week Comments No 0 [...] on file 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 Gender Identity Not on file Sexual Orientation Not on file Occupation Industry Job Start Date Job End Date retired Not on file Not on file Not on file documented as of this encounter Plan of Treatment Not on file documented as of this encounter Procedures Procedure Name Priority Date/Time Associated Diagnosis Comments SCAN - RADIOLOGY/IMAGING 08/21/2024 9:11 AM CDT documented in this encounter Results * SCAN - RADIOLOGY/IMAGING (08/21/2024 9:11 AM CDT) Anatomical Region Laterality Modality Other us Provider Scanning Final Result documented in this encounter Visit Diagnoses Not on filedocumented in this encounter Care Teams Neurology Physician Relationship Specialty Start Date End Date Steve Peraza MD [address] [address] PCP - General 08/09/16 documented as of this encounter
--- NOTE | 2024-08-25 19:20 | ED_ITS ---
HPI - Fall General Chief Complaint: Fall Stated Complaint: fall Time Seen by Provider: 08/25/24 18:14 Source: patient and old records reviewed Mode of arrival: EMS Limitations: no limitations History of Present Illness HPI Narrative: Patient is a 74-year-old female, with past medical history of Parkinson's disease, HTN, who presents to the ED via EMS with report of a fall. Patient is a resident of [facility]. Per EMS report, patient had a a ground level fall today she attempted to get out of her wheelchair on her own. She did hit her posterior head and stated hematoma to her scalp. Denied LOC. Patient complains of mild headache, denies neck or back pain, chest or abdominal pain, dizziness. Has no other complaints. Patient is not on any anticoagulation. Related Data Home Medications ?Medication ?Instructions ?Recorded ?Confirmed ?Last Taken ?Type acetaminophen 325 mg tablet 650 mg PO Q6H PRN discomfort 08/20/24 08/20/24 Unknown History atorvastatin 10 mg tablet 10 mg PO QPM PRN hyperlipedimia 08/20/24 08/20/24 Unknown History carbidopa 25 mg-levodopa 100 mg 1 tablet PO QID parkinsonism 08/20/24 08/20/24 Unknown History tablet hydroxyzine HCl 25 mg tablet 25 mg PO Q8H 08/20/24 08/20/24 Unknown History lisinopril 5 mg tablet 5 mg PO DAILY 08/20/24 08/20/24 Unknown History methocarbamol 500 mg tablet 500 mg PO Q8H muscle relaxer 08/20/24 08/20/24 Unknown History naproxen 500 mg tablet 500 mg PO Q12H 08/20/24 08/20/24 Unknown History sertraline 50 mg tablet 50 mg PO Q24H 08/20/24 08/20/24 Unknown History zonisamide 25 mg capsule 25 mg PO DAILY 08/20/24 08/20/24 Unknown History Allergies Allergy/AdvReac Type Severity Reaction Status Date / Time baclofen Allergy Severe Anaphylactic Verified 08/25/24 17:57 Shock egg Allergy Mild Anaphylactic Verified 08/25/24 17:57 Shock lidocaine Allergy Unknown Unknown Verified 08/25/24 17:57 Penicillins Allergy Unknown Rash Verified 08/25/24 17:57 propofol Allergy Unknown Anaphylactic Verified 08/25/24 17:57 Shock adhesive AdvReac Mild Rash Verified 08/25/24 17:57 Review of Systems Review of Systems: All systems reviewed & are unremarkable except as noted in HPI. All systems reviewed & are unremarkable except as noted in HPI and below PMFSH Past Medical History Medical History Hypertension Hyperlipidemia Parkinson disease Surgical History Surgical History History of cholecystectomy Social History Social History Smoking status: Never smoker Alcohol intake: never Substance use: never Exam Narrative: GENERAL: Elderly, frail, non-toxic, in no acute distress. HEAD: Normocephalic. Contusion to L posterior scalp with minimal erythema, minimal tenderness, no wounds or lacerations. EYES: PERRL/EOMI, conjunctiva clear NECK: Normal ROM, no appreciable midline spinal tenderness. RESPIRATORY: Airway patent, respirations nonlabored. Clear to auscultation bilaterally, no rales, rhonchi, wheezing. CARDIOVASCULAR: Regular rate and rhythm without murmurs, rubs, or gallops. ABDOMINAL: Soft, nontender, nondistended. Normoactive BS. MUSCULOSKELETAL: Moves all extremities. No gross deformities. Sensation intact throughout extremities. SKIN: Warm, dry, normal color. NEURO: A&O X3. Speech clear. No ataxic movements. PSYCHIATRIC: Appropriate mood and affect. Normal interaction. Course Vital Signs Vital signs: Vital Signs Temperature 98.2 F 08/25/24 17:44 Pulse Rate 71 08/25/24 17:44 Respiratory Rate 20 08/25/24 17:44 Blood Pressure 143/77 H 08/25/24 17:44 Pulse Oximetry 97 08/25/24 17:44 Oxygen Delivery Room Air 08/25/24 17:44 Temperature 98.2 F 08/25/24 17:44 Pulse Rate 76 08/25/24 18:30 Respiratory Rate 24 H 08/25/24 18:30 Blood Pressure 139/89 08/25/24 18:30 Pulse Oximetry 97 08/25/24 17:55 Oxygen Delivery Room Air 08/25/24 17:44 MDM - Fall MDM Narrative Medical decision making narrative: Patient presented to ED from local assisted facility with report of witnessed fall from her wheelchair, head injury, no LOC. Vital signs are stable upon arrival. Patient in no acute distress, neurologically intact per baseline. Denies any complaints aside from a very mild headache. No anticoagulation. CT brain and cervical spine without acute traumatic findings. Patient later called out that she was having some pain in her right shoulder. X-ray was obtained and unremarkable, no fracture. Patient given Tylenol. Patient remains neurovascularly intact. Feel she is safe for discharge back to the assisted. Discussed return precautions on paperwork. Discharged in stable condition. Medical Records Attestation: I reviewed the patient's medical records. Imaging Data Attestation: I personally reviewed and interpreted this imaging study as follows: Radiologist's impression: ITS Impressions Head CT 08/25/24 19:08 IMPRESSION: No acute intracranial findings. Cervical Spine CT 08/25/24 19:54 IMPRESSION: No acute osseous abnormality cervical spine. Multilevel degenerative disc disease. Shoulder X-Ray 08/25/24 20:46 IMPRESSION: No acute osseous abnormality right shoulder. Discharge Plan Discharge Clinical Impression: Accidental fall from wheelchair Qualifiers: Encounter type: initial encounter Qualified Code(s): W05.0XXA - Fall from non- moving wheelchair, initial encounter Closed head injury Qualifiers: Encounter type: initial encounter Qualified Code(s): S09.90XA - Unspecified injury of head, initial encounter Right shoulder strain Qualifiers: Encounter type: initial encounter Qualified Code(s): S46.911A - Strain of unspecified muscle, fascia and tendon at shoulder and upper arm level, right arm, initial encounter Patient Disposition: NH Longterm/Asst Living Condition: Stable Instructions: Antibiotic Form, Concussion (ED), Head Injury (ED) Additional Instructions: Patient's imaging did not show any traumatic findings. Recommend ice to areas of pain, Tylenol as needed for pain. Return to ED if patient experiences worsening or severe pain, recurrent injury, numbness, dizziness, passing out, chest pain, difficulty breathing, or any other symptoms of concern. Patient Language: Uzbek Prescriptions: No Action levofloxacin 750 mg tablet 750 mg PO DAILY 7 Days Qty: 7 0RF methocarbamol 500 mg tablet 500 mg PO Q8H acetaminophen 325 mg tablet 650 mg PO Q6H PRN (Reason: discomfort ) atorvastatin 10 mg tablet 10 mg PO QPM PRN (Reason: hyperlipedimia ) hydroxyzine HCl 25 mg tablet 25 mg PO Q8H lisinopril 5 mg tablet 5 mg PO DAILY carbidopa-levodopa 25-100 mg tablet 1 tablet PO QID sertraline 50 mg tablet 50 mg PO Q24H naproxen 500 mg tablet 500 mg PO Q12H zonisamide 25 mg capsule 25 mg PO DAILY Follow-up/Referrals: Karmen,Steve Rhodes MD [Primary Care Provider] - Time of Disposition: 20:52
[2024-08-25] MEDS: ACETAMINOPHEN 325 MG TABLET 650 MG PO (20:49)
== END 2024-08-25 23:13 ==
PROVIDERS: Emergency Provider Physician Assistant; PCP Internal Medicine
DX: S00.03XA Contusion of scalp, initial encounter (principal); S46.911A Strain of unspecified muscle, fascia and tendon at shoulder and upper arm level, right arm, initial encounter; G20.A1 Parkinson's disease without dyskinesia, without mention of fluctuations; I10 Essential (primary) hypertension; E78.5 Hyperlipidemia, unspecified; Z90.49 Acquired absence of other specified parts of digestive tract; M50.31 Other cervical disc degeneration, high cervical region; M48.02 Spinal stenosis, cervical region; W05.0XXA Fall from non-moving wheelchair, initial encounter
CPT/HCPCS: 70450; 72125; 73030; 99284; A9270

== ENCOUNTER 2024-09-22 09:44 | Emergency (ER) | payer MEDICARE, MEDICAID, SELFPAY ==
--- NOTE | ~2024-09-22 | CT_ITS ---
EXAMINATION: CT thoracic lumbar wo con DATE: 09/22/2024 10:16 INDICATION: Back pain status post fall TECHNIQUE: Computed tomography (CT) of the thoracic and lumbar was performed without intravenous cont rast. The dose-length product was 524.89 mGy-cm. Automated exposure control and iterative reconstruct ion technique were employed. COMPARISON: None FINDINGS: There are wedge compression fractures of T5, T6, T7, T8, T10, T11 and L1, likely chronic. T here is grade 1 spondylolisthesis at L5-S1. There is severe lumbar spondylosis. There is disc narrowi ng at L4-5 and L5-S1. Visualized lung parenchyma is unremarkable. No paraspinal soft tissue abnormali ty. There is dextroscoliosis of the thoracic spine. There is severe multilevel thoracic and lumbar sp ondylosis. Nonobstructing left nephrolithiasis. There is atherosclerosis of the aorta without aneurys m. IMPRESSION: 1. Multiple thoracic and lumbar compression fractures, likely chronic. 2: Severe thoracic and lumbar spondylosis. Reviewed, dictated and finalized at location A.
--- NOTE | ~2024-09-22 | CT_ITS ---
EXAMINATION: 1. CT facial & cervical spine wo DATE: 09/22/2024 10:16 INDICATION: Facial trauma TECHNIQUE: 1. Computed tomography (CT) of the maxillofacial region and of the cervical spine were performed with out intravenous contrast. Sagittal and coronal reconstructions of both regions were obtained. Automat ed exposure control and iterative reconstruction technique were employed. The dose-length product was 145.89 mGy-cm. COMPARISON: CT dated 12/10/2020 and 08/25/2024 FINDINGS: Maxillofacial CT: No maxillofacial fractures. Specifically the mandible, zygomatic arches, nasal bones and torres of the orbits and paranasal sinuses are all intact. Status post left mastoidectomy. There is small amount o f fluid versus soft tissue density along side the ossicular chain in the right middle ear cavity. Orb its are normal. Extensive dental disease with edentulous maxilla with alveolar ridge resorptive garcia es and with numerous missing teeth and multiple residual tooth fragments along the mandible. There is asymmetric soft tissue swelling at the left side of the face. Partially visualized deep brain stimul ator leads in expected position. Cervical spine CT: 15 degrees cervicothoracic dextrocurvature. Sagittal alignment is normal. Vertebral body heights are normal. No acute fracture. Severe atlantoaxial osteoarthritis. Moderate to severe disc height loss at C5-C6 and C6-C7. Mild disc height loss at C3-C4, C4-C5 and C7-T1. There is multilevel severe left-si ded cervical uncovertebral osteoarthritis and mild to moderate right-sided uncovertebral osteoarthrit is. Multilevel moderate to severe cervical facet osteoarthritis also with left-sided predominance. Th ere are disc bulges at C3-C4 and C4-C5 and posterior disc osteophyte complexes at C5-6 and C6-C7 cont ributing to moderate central canal stenosis at C5-C6 and mild central canal stenosis at the remaining levels. There is multilevel cervical neural foraminal stenosis, moderate severity at C3-C4 through C 7-T1, on the right at C5-C6 and mild at the remaining cervical levels. Atherosclerotic calcification is at the bilateral carotid bulbs, left greater than right. Cervical soft tissues are otherwise unrem arkable. Mild dependent atelectasis in the visualized left upper lung. IMPRESSION: 1. Soft tissue filling at the left side of the face. No acute osseous abnormality. 2. Moderate to severe cervical spondylosis with no acute osseous abnormality. Reviewed, dictated and finalized at location A. IMPRESSION: 1. Soft tissue filling at the left side of the face. No acute osseous abnormali ty. 2. Moderate to severe cervical spondylosis with no acute osseous abnormality.
[2024-09-22 09:46] VITALS: BP 109/61; PULSE 71; RESP 18; TEMP 36.6; O2SAT 96
--- OUTSIDE RECORDS SUMMARY | 2024-09-22 10:17 | XMS_ITS | Clinical Summary ---
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 Anderson presented in the med on state for further programming. She is s/p bilateral STN DBS (08/10/2013) and revision of the right connector wire in 2013, replacement of left DBS system after lead fracture on 02/02/19 for further programming. She had a fall and hit her head on the table. She was provided with an ice pack from staff at the [facility]. She did not need to seek medical [...] visit. She felt stronger. She was attending [employer] twice a week. Her DBS was interrogated [...] zonisamide Assessment & Plan (03/26/2022 11:22 AM VICE PRESIDENT QUALITY): Ms. Anderson presented in the med on [...] when she she laughed about the front line leader giving a wheelchair when she did not [...] her stimulation today. 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 She was also provided with printed instructions. Recommendations: 1. Keep DBS on at all times 2. Same levodopa 3. Continue PT/ST 4. Fall precaution 5. Follow up in 6 months and sooner if needed Assessment & Plan (04/11/2021 12:28 PM VICE PRESIDENT QUALITY): Ms. Anderson presented in the med ON [...] 3V). Assessment & Plan (06/18/2019 2:21 PM VICE PRESIDENT QUALITY): Ms. Anderson had near tremor resolution for [...] 3V). Assessment & Plan (05/24/2019 12:41 PM VICE PRESIDENT QUALITY): Ms. Anderson had less right hand tremor [...] orders Assessment & Plan (04/05/2019 3:10 PM VICE PRESIDENT QUALITY): Ms. Anderson had improvement since her left [...] 25-100 QID Health Insurance Coverage: [facility] Medicare Prescription Coverage: yes Pharmacy: [place], [place] - [address] [id number] [facility] - [place], [place] - [address] [facility] [address] Primary Care Provider: Steve Peraza MD Assessment [...] needed. Assessment & Plan (07/17/2017 1:57 PM VICE PRESIDENT QUALITY): Symptoms are improved. Reviewed core strengthening. Reviewed ROM exercises. Assessment & Plan (01/17/2017 11:29 AM CDT): Continue gabapentin and diazepam. Follow with neurology.Reviewed core strengthening. Reviewed ROM exercises.Start hydrocodone. 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 Continue alprazolam. Assessment & Plan (05/23/2022 5:57 AM VICE PRESIDENT QUALITY): Reviewed stress reduction techniques.Symptoms are controlled off [...] visit Assessment & Plan (05/08/2023 5:40 AM VICE PRESIDENT QUALITY): Continue Sinemet. Continue Neurology care. Assessment & Plan (07/08/2022 4:07 PM VICE PRESIDENT QUALITY): She had stage 3 parkinsonism characterized by [...] ST. Assessment & Plan (05/23/2022 5:56 AM VICE PRESIDENT QUALITY): Continue Sinemet. Continue Neurology care. Assessment & Plan (11/30/2021 7:17 AM CDT): Continue Sinemet. Continue Neurology care. Assessment & Plan (06/25/2021 12:21 PM VICE PRESIDENT QUALITY): Ms. Anderson presented for a follow up via telemedicine. She was doing better than when she was here last in [facility]. She did not have falls and her [...] September Assessment & Plan (04/11/2021 11:44 AM VICE PRESIDENT QUALITY): She had stage 3 parkinsonism characterized by [...] reevaluated via telemedicine by one of our Clip Loading Machine Adjuster to determine if mood and tremor are [...] care. Assessment & Plan (07/17/2017 8:21 AM VICE PRESIDENT QUALITY): Continue Sinemet and neurology care. Assessment & Plan (01/17/2017 7:41 AM CDT): Continue neurology care and Sinemet. Hypertension 04/02/2013 Assessment & Plan (05/08/2023 5:40 AM VICE PRESIDENT QUALITY): Hypertension is controlled. Continue current regimen. Assessment & Plan (05/23/2022 5:57 AM VICE PRESIDENT QUALITY): Hypertension is controlled. Continue current regimen.Reviewed normal [...] regimen. Assessment & Plan (07/17/2017 8:20 AM VICE PRESIDENT QUALITY): Hypertension is controlled. Continue current regimen. Assessment & Plan (01/17/2017 7:41 AM CDT): Hypertension is controlled. Continue current regimen. Removed low sodium diet. Resolved Problems Problem Noted Date Diagnosed Date Resolved Date Acute respiratory failure with hypoxia 11/14/2017 07/24/2018 Chronic pain 02/10/2017 12/02/2017 Encounters Date Type Department Care Team Description 08/26/2024 Orders Only [facility] Health Information Management [address] [place] [id number] Scanning, Provider 08/21/2024 Orders Only [facility] Health Information Management [address] [place] [phone] Scanning, Provider from Last 3 Months Immunizations [...] Tremor Hypertension Anxiety Parkinson disease (HCC) Stroke ([facility]) 1972 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 Acute respiratory failure re quiring reintubation ([facility]) 11/14/2017 Family History Medical History Relation Name [...] on file 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2in .4in 1 Channel Octapolar Multiprogram - [id number] - [id number] Implanted:Qty: 1 on 02/02/2019 by Gui Montenegro MD at [facility] Left: Chest Medtronic Inc 06/25/2020 [id number] / [id number] / Davol Inc/C R Bard [id number] Bard Marlex 6x6in Monofilament Gold Standard Flat Sheet Groin - [id number] Implanted:Qty: 1 on 02/02/2019 by uGi Montenegro MD at [facility] Left: Chest [employer]ol Inc/C R Bard 09/07/2023 [id number] / / [id number] Medtronic Neuro 3389s-40 Stimloc 40cm Spinal Cord .5mm Space Kit Neurostimulator Lead - [id number] Implanted:Qty: 1 on 02/02/2019 by Gui Montenegro MD at [facility] Medtronic Inc 12/01/2022 [id number] / / [id number] Biomet Adynxxixation Inc Od2 Mm L[address] Maxillofacial Screw Bone Titanium - [id number] Implanted:Qty: 4 on 02/02/2019 by Gui oMntenegro MD at [facility] Left: Cranial Morena [employer] Inc / / Biomet Microfixation Inc 4 Hole Straight Mandible Regular Plate Bone Titanium Sterile 2mm - [id number] Implanted:Qty: 2 on 02/02/2019 by Gui Montenegro MD at [facility] Left: Cranial Morena [employer] Inc / / Medtronic Neuro [id number] Dbs 3.8-1.3mm 1.5mm 60cm Quadripolar Distal Octapolar Proximal - [id number] - [id number] Implanted:Qty: 1 on 02/02/2019 by Gui Montenegro MD at [facility] Left: Head Medtronic Inc 12/24/2022 [id number] / [id number] / Medtronic Inc Stimulator Activa 91411 - [id number] Implanted:Qty: 1 on 09/13/2022 by Gui Montenegro MD at [facility] Right: Chest Medtronic Inc 08/24/2023 [id number] / / Explanted Type Area Radiographer Angiogram Device Identifier Shelf Expiration Date Model / Serial / Lot Medtronic Neuro [id number] Activa Sc 2.4inx2.2in .4in 1 Channel Octapolar Multiprogram - [id number] - [id number] Explanted:Qty: 1 on 02/02/2019 by Gui Montenegro MD at [facility] Medtronic Inc 55697 / [id number] / BiomPlaymysongixation Inc -[id number] Od2 Mm [address] [id number]||2024-09-22 10:20:00|CT_ITS|BURKT|Imaging|[id number]|"EXAMINATION: CT brain wo con DATE: 09/22/2024 10:16 INDICATION: Head injury TECHNIQUE: Computed tomography (CT) of the head was performed without intravenous contrast. The dose- length product was 605.33 mGy-cm. Automated exposure control and iterative reconstruction technique w ere employed. COMPARISON: 08/25/2024 FINDINGS: There are bilateral deep brain stimulator leads, position stable. Generalized atrophy. Ther e are scattered mild periventricular and subcortical white matter changes, most likely related to sma ll vessel ischemic disease (microangiopathy). There is right frontal scalp hematoma. No ventriculomeg hayley or midline shift. Basilar cisterns are patent. No acute infarction, hemorrhage, mass or mass effe ct. Paranasal sinuses and mastoids are pneumatized. IMPRESSION: 1. No acute intracranial abnormality. Reviewed, dictated and finalized at location A. IMPRESSION: 1. No acute intracranial abnormality. "
--- OUTSIDE RECORDS SUMMARY | 2024-09-22 10:17 | XMS_ITS | Referral Summary ---
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 Anderson presented in the med on [...] visit. She felt stronger. She was attending boolino twice a week. Her DBS was interrogated [...] zonisamide Assessment & Plan (03/26/2022 11:22 AM BUSINESS DEVELOPMENT COORDINATOR): Ms. Anderson presented in the med on [...] overall when she she laughed about the hotel front office manager giving a wheelchair when she did not [...] her stimulation today. 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 She was also provided with printed instructions. Recommendations: 1. Keep DBS on at all times 2. Same levodopa 3. Continue PT/ST 4. Fall precaution 5. Follow up in 6 months and sooner if needed Assessment & Plan (04/11/2021 12:28 PM BUSINESS DEVELOPMENT COORDINATOR): Ms. Anderson presented in the med ON [...] 3V). Assessment & Plan (06/18/2019 2:21 PM BUSINESS DEVELOPMENT COORDINATOR): Ms. Anderson had near tremor resolution for [...] 3V). Assessment & Plan (05/24/2019 12:41 PM BUSINESS DEVELOPMENT COORDINATOR): Ms. Anderson had less right hand tremor [...] orders Assessment & Plan (04/05/2019 3:10 PM BUSINESS DEVELOPMENT COORDINATOR): Ms. Anderson had improvement since her left [...] 25/day Carbidopa-Levodopa 25-100 QID Health Insurance Coverage: [facility] Medicare Prescription Coverage: yes Pharmacy: [address] [id number] [facility] [place], [place] - [address], [address], [address] [facility] [address] Primary Care Provider: Steve Peraza MD Assessment [...] needed. Assessment & Plan (07/17/2017 1:57 PM BUSINESS DEVELOPMENT COORDINATOR): Symptoms are improved. Reviewed core strengthening. Reviewed ROM exercises. Assessment & Plan (01/17/2017 11:29 AM CDT): Continue gabapentin and diazepam. Follow with neurology.Reviewed core strengthening. Reviewed ROM exercises.Start hydrocodone. 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 Continue alprazolam. Assessment & Plan (05/23/2022 5:57 AM BUSINESS DEVELOPMENT COORDINATOR): Reviewed stress reduction techniques.Symptoms are controlled off [...] visit Assessment & Plan (05/08/2023 5:40 AM BUSINESS DEVELOPMENT COORDINATOR): Continue Sinemet. Continue Neurology care. Assessment & Plan (07/08/2022 4:07 PM BUSINESS DEVELOPMENT COORDINATOR): She had stage 3 parkinsonism characterized by [...] ST. Assessment & Plan (05/23/2022 5:56 AM BUSINESS DEVELOPMENT COORDINATOR): Continue Sinemet. Continue Neurology care. Assessment & Plan (11/30/2021 7:17 AM CDT): Continue Sinemet. Continue Neurology care. Assessment & Plan (06/25/2021 12:21 PM BUSINESS DEVELOPMENT COORDINATOR): Ms. Anderson presented for a follow up via telemedicine. She was doing better than when she was here last in [facility]. She did not have falls and [...] September Assessment & Plan (04/11/2021 11:44 AM BUSINESS DEVELOPMENT COORDINATOR): She had stage 3 parkinsonism characterized by [...] reevaluated via telemedicine by one of our Photoflash Powder Mixer to determine if mood and tremor are [...] care. Assessment & Plan (07/17/2017 8:21 AM BUSINESS DEVELOPMENT COORDINATOR): Continue Sinemet and neurology care. Assessment & Plan (01/17/2017 7:41 AM CDT): Continue neurology care and Sinemet. Hypertension 04/02/2013 Assessment & Plan (05/08/2023 5:40 AM BUSINESS DEVELOPMENT COORDINATOR): Hypertension is controlled. Continue current regimen. Assessment & Plan (05/23/2022 5:57 AM BUSINESS DEVELOPMENT COORDINATOR): Hypertension is controlled. Continue current regimen.Reviewed normal [...] regimen. Assessment & Plan (07/17/2017 8:20 AM BUSINESS DEVELOPMENT COORDINATOR): Hypertension is controlled. Continue current regimen. Assessment [...] on file Legal Sex Female 11:32 PM BUSINESS DEVELOPMENT COORDINATOR Gender Identity Not on file Sexual Orientation [...] on file Medical Devices Implanted Type Area Human Resources Department Supervisor Device Identifier Shelf Expiration Date Model / Serial / Lot Dbs Bilateral: Brain Medtronic Neuro [id number] Activa Sc 2.4inx2.2in .4in 1 Channel Quadripolar Multiprogram - [id number] - [id number] Implanted:Qty: 1 on 11/14/2017 by Gui Montenegro MD at [facility] Left: Chest Medtronic Neuro 03/25/2019 [id number] / [id number] / Medtronic Neuro 95319 Activa Sc 2.4inx2.2in .4in 1 Channel Octapolar Multiprogram - [id number] - [id number] Implanted:Qty: 1 on 02/02/2019 by Gui Montenegro MD at [facility] Left: Chest Medtronic Inc 06/25/2020 [id number] / [id number] / Davol Inc/C R Bard [id number] Bard Marlex 6x6in Monofilament Gold Standard Flat Sheet Groin - [id number] Implanted:Qty: 1 on 02/02/2019 by Gui Montenegro MD at [facility] Left: Chest Davol Inc/C R Bard 09/07/2023 [id number] / / [id number] Medtronic Neuro 3389s-40 Stimloc 40cm Spinal Cord .5mm Space Kit Neurostimulator Lead - [id number] Implanted:Qty: 1 on 02/02/2019 by Gui Montenegro MD at [facility] Medtronic Inc 12/01/2022 [id number]-40 / / [id number] Biomet eBuddyixation Inc Od2 Mm L[address] Maxillofacial Screw Bone Titanium - [id number] Implanted:Qty: 4 on 02/02/2019 by Gui Montenegro MD at [facility] Left: Cranial Morena Biomet Inc / / Biomet eBuddyixation Inc 4 Hole Straight Mandible Regular Plate Bone Titanium Sterile 2mm - [id number] Implanted:Qty: 2 on 02/02/2019 by Gui Montenegro MD at [facility] Left: Cranial Morena [employer]omet Inc / / Medtronic Neuro 19354-16 Dbs 3.8-1.3mm 1.5mm 60cm Quadripolar Distal Octapolar Proximal - [id number] - [id number] Implanted:Qty: 1 on 02/02/2019 by Gui Montenegro MD at [facility] Left: Head Medtronic Inc 12/24/2022 [id number] / [id number] / Medtronic Inc Stimulator Activa 37997 - [id number] Implanted:Qty: 1 on 09/13/2022 by Gui Montenegro MD at [facility] Right: Chest Medtronic Inc 08/24/2023 [id number] / / Explanted Type Area Human Resources Department Supervisor Device Identifier Shelf Expiration Date Model / Serial / Lot Medtronic Neuro [id number] Activa Sc 2.4inx2.2in .4in 1 Channel Octapolar Multiprogram - [id number] - [id number] Explanted:Qty: 1 on 02/02/2019 by Gui Montenegro MD at [facility] Medtronic Inc [id number] / [id number] / Biomet eBuddyixation Inc Od2 Mm L[address] Maxillofacial Screw Bone Titanium - [id number] Explanted:Qty: 4 on 02/02/2019 at [facility] Left: Cranial Morena Biomet Inc / / Biomet Microfixation Inc 4 Hole Straight Mandible Regular Plate Bone Titanium Sterile 2mm - [id number] Explanted:Qty: 2 on 02/02/2019 at [facility] Left: Cranial Morena Biomet Inc / / Medtronic Neuro [id number] Activa Sc 2.4inx2.2in .4in 1 Channel Quadripolar Multiprogram - [id number] - [id number] Implanted:Qty: 1 on 11/14/2017 by Gui oMntenegro MD at [facility] Explanted:Qty: 1 on 09/13/2022 by Gui Montenegro MD at [facility] Right: Chest Medtronic Neuro 03/25/2019 [id number] / [id number] / Procedures Procedure Name Priority Date/Time Associated Diagnosis Comments SCAN - RADIOLOGY/IMAGING 08/26/2024 10:48 AM CDT SCAN - RADIOLOGY/IMAGING 08/26/2024 10:48 AM CDT SCAN - RADIOLOGY/IMAGING 08/26/2024 8:24 AM CDT SCAN - RADIOLOGY/IMAGING 08/21/2024 9:11 AM CDT STOOL DNA COLOGUARD Routine 06/17/2022 7:00 PM BUSINESS DEVELOPMENT COORDINATOR Colon cancer screening from Last 3 Months or Most Recently Relevant to Health Maintenance Results * SCAN - RADIOLOGY/IMAGING (08/26/2024 10:48 AM CDT) Anatomical Region Laterality Modality Other us Provider Scanning Final Result * SCAN - RADIOLOGY/IMAGING (08/26/2024 10:48 AM CDT) Anatomical Region Laterality Modality Other us Provider Scanning Final Result * SCAN - RADIOLOGY/IMAGING (08/26/2024 8:24 AM CDT) Anatomical Region Laterality Modality Other us Provider Scanning Final Result * SCAN - RADIOLOGY/IMAGING (08/21/2024 9:11 AM CDT) Anatomical Region Laterality Modality Other us Provider Scanning Final Result * Stool DNA - Cologuard (06/17/2022 7:00 PM BUSINESS DEVELOPMENT COORDINATOR) Stool DNA - Cologuard Negative Negative [employer] (Neograft TechnologiesIA #:[id number]) Comment: NEGATIVE TEST RESULT. A negative Cologuard [...] (Adilson Fox al, N Engl J Med 2014;370(14):0876-8883) The normal value (reference range) for this assay is negative. COLOGUARD RE-SCREENING RECOMMENDATION: Periodic colorectal cancer screening is an important part of preventive healthcare for asymptomatic individuals at average risk for colorectal cancer. Following a negative Cologuard result, the [place] [employer] and U.S. Multi-Society Task Force screening guidelines recommend a Cologuard re-screening interval [id number]|2024-09-22 11:24:32|2024-09-22 11:24:32|PC.NURSE||||"Aracelis MACK calls at [phone] for patient update. all questions answered. "
[2024-09-22 10:57] VITALS: BP 137/72
[2024-09-22 11:00] VITALS: BP 144/78; PULSE 67; RESP 16; O2SAT 97
[2024-09-22 11:15] VITALS: BP 163/80; PULSE 71; RESP 17; O2SAT 98
--- NOTE | 2024-09-22 12:23 | ED_ITS ---
HPI - General Adult General Chief complaint: Fall Stated complaint: GLF, head injury Time Seen by Provider: 09/22/24 09:49 History of Present Illness HPI narrative: Patient 71-year-old female presents emergency department chief complaint of head injury. Patient reports that she got out of wheelchair and struck her head mother wheelchair and had a hematoma on her right side of her forehead. The patient states she has had back pain afterwards but always has chronic back pain. Related Data Home Medications Medication Instructions Recorded Confirmed Last Taken Type acetaminophen 325 mg tablet 650 mg PO Q6H PRN discomfort 08/20/24 08/20/24 Unknown History atorvastatin 10 mg tablet 10 mg PO QPM PRN hyperlipedimia 08/20/24 08/20/24 Unknown History carbidopa 25 mg-levodopa 100 mg 1 tablet PO QID parkinsonism 08/20/24 08/20/24 Unknown History tablet hydroxyzine HCl 25 mg tablet 25 mg PO Q8H 08/20/24 08/20/24 Unknown History lisinopril 5 mg tablet 5 mg PO DAILY 08/20/24 08/20/24 Unknown History methocarbamol 500 mg tablet 500 mg PO Q8H muscle relaxer 08/20/24 08/20/24 Unknown History naproxen 500 mg tablet 500 mg PO Q12H 08/20/24 08/20/24 Unknown History sertraline 50 mg tablet 50 mg PO Q24H 08/20/24 08/20/24 Unknown History zonisamide 25 mg capsule 25 mg PO DAILY 08/20/24 08/20/24 Unknown History Allergies Allergy/AdvReac Type Severity Reaction Status Date / Time baclofen Allergy Severe Anaphylactic Verified 08/25/24 17:57 Shock egg Allergy Mild Anaphylactic Verified 08/25/24 17:57 Shock lidocaine Allergy Unknown Unknown Verified 08/25/24 17:57 Penicillins Allergy Unknown Rash Verified 08/25/24 17:57 propofol Allergy Unknown Anaphylactic Verified 08/25/24 17:57 Shock adhesive AdvReac Mild Rash Verified 08/25/24 17:57 Review of Systems Review of Systems: A 10 system review of systems was completed on the patient and is negative except for what is stated in the HPI. Nursing and ancillary documentation was reviewed. [facility] Past Medical History Medical History Hypertension Hyperlipidemia Parkinson disease Surgical History Surgical History History of cholecystectomy Social History Social History Smoking status: Never smoker Alcohol intake: never Substance use: never Exam Narrative: GENERAL: Well-appearing, well-nourished, and in no acute distress. HEAD: Normocephalic, hematoma present the right. EYES: PERRLA and EOMI. ENT: Nares clear, no rhinorrhea or epistaxis. Mucous membranes moist. NECK: Supple. CHEST: Clear to auscultation. No respiratory distress. HEART: Regular rate and rhythm. No murmur heard. Normal peripheral pulses. ABDOMEN: Soft, nontender, nondistended, normal active bowel sounds. EXTREMITIES: Normal range of motion. No edema. SKIN: Warm, dry, no rash. NEURO: No focal deficits. Alert and oriented x3. PSYCH: Normal mood and affect. Course Vital Signs Vital signs: Vital Signs Temperature 36.6 C 09/22/24 09:46 Pulse Rate 71 09/22/24 09:46 Respiratory Rate 18 09/22/24 09:46 Blood Pressure 109/61 09/22/24 09:46 Pulse Oximetry 96 09/22/24 09:46 Oxygen Delivery Room Air 09/22/24 09:46 Temperature 36.6 C 09/22/24 09:46 Pulse Rate 71 09/22/24 09:46 Respiratory Rate 18 09/22/24 09:46 Blood Pressure 109/61 09/22/24 09:46 Pulse Oximetry 96 09/22/24 09:46 Oxygen Delivery Room Air 09/22/24 09:46 Medical Decision Making [facility] Narrative Medical decision making narrative: Differential diagnosis includes head injury, hematoma, cervical spine fracture, facial fractures, intracranial hemorrhage CT scans were obtained of the head face C-spine the showed no evidence fracture no evidence intracranial hemorrhage. CT thoracic and lumbar spine showed evidence of chronic fractures but no acute fracture Vital Signs Vital Signs: Vital Signs Temperature 36.6 C 09/22/24 09:46 Pulse Rate 71 09/22/24 09:46 Respiratory Rate 18 09/22/24 09:46 Blood Pressure 109/61 09/22/24 09:46 Pulse Oximetry 96 09/22/24 09:46 Oxygen Delivery Room Air 09/22/24 09:46 Temperature 36.6 C 09/22/24 09:46 Pulse Rate 71 09/22/24 09:46 Respiratory Rate 18 09/22/24 09:46 Blood Pressure 109/61 09/22/24 09:46 Pulse Oximetry 96 09/22/24 09:46 Oxygen Delivery Room Air 09/22/24 09:46 Discharge Plan Discharge Clinical Impression: Head injury, Compression fracture, Hematoma of frontal scalp Patient Disposition: [facility] Living Condition: Stable Instructions: Antibiotic Form, Contusion in Children (DC), Head Injury (ED) Additional Instructions: Of the CT scan of your back showed that there had been old fractures but no new fractures. Patient Language: Mohawk Prescriptions: No Action levofloxacin 750 mg tablet 750 mg PO DAILY 7 Days Qty: 7 0RF methocarbamol 500 mg tablet 500 mg PO Q8H acetaminophen 325 mg tablet 650 mg PO Q6H PRN (Reason: discomfort ) atorvastatin 10 mg tablet 10 mg PO QPM PRN (Reason: hyperlipedimia ) hydroxyzine HCl 25 mg tablet 25 mg PO Q8H lisinopril 5 mg tablet 5 mg PO DAILY carbidopa-levodopa 25-100 mg tablet 1 tablet PO QID sertraline 50 mg tablet 50 mg PO Q24H naproxen 500 mg tablet 500 mg PO Q12H zonisamide 25 mg capsule 25 mg PO DAILY Follow-up/Referrals: Karmen,Steve Rhodes MD [Primary Care Provider] - Time of Disposition: 12:27
== END 2024-09-22 14:00 ==
PROVIDERS: Emergency Provider Emergency Medicine; PCP Internal Medicine
DX: S00.83XA Contusion of other part of head, initial encounter (principal); S22.050A Wedge compression fracture of T5-T6 vertebra, initial encounter for closed fracture; S22.060A Wedge compression fracture of T7-T8 vertebra, initial encounter for closed fracture; S22.070A Wedge compression fracture of T9-T10 vertebra, initial encounter for closed fracture; S22.080A Wedge compression fracture of T11-T12 vertebra, initial encounter for closed fracture; S32.010A Wedge compression fracture of first lumbar vertebra, initial encounter for closed fracture; I10 Essential (primary) hypertension; E78.5 Hyperlipidemia, unspecified; G20.A1 Parkinson's disease without dyskinesia, without mention of fluctuations; Z90.49 Acquired absence of other specified parts of digestive tract; M47.816 Spondylosis without myelopathy or radiculopathy, lumbar region; M47.814 Spondylosis without myelopathy or radiculopathy, thoracic region; W22.8XXA Striking against or struck by other objects, initial encounter
CPT/HCPCS: 70450; 70486; 72125; 72128; 72131; 99284